=== PATIENT | female | born 1970 | race Caucasian/White ===

== ENCOUNTER → 2017-06-03 | Outpatient (CLI) | payer BC, SELFPAY | PROVIDERS: PCP Family Medicine; Visit Provider Family Medicine | DX: Z12.31 Encounter for screening mammogram for malignant neoplasm of breast (principal) | CPT/HCPCS: 77067; G0202 ==

== ENCOUNTER → 2017-11-24 14:51 | Outpatient (CLI) | payer BC, SELFPAY ==
--- NOTE | 2017-11-24 14:58 | US_ITS ---
US thyroid HISTORY: Follow-up thyroid nodules ITS.REASON: CYSTIC THYROID NODULE ORDERING PHYSICIAN: Renato Sanchez MD PATIENT AGE: 47 years Comparison: 12/25/2016 FINDINGS: Right lobe: 3.7 x 1.5 x 2.3 cm. 13 x 8 mm solid nodule in the mid aspect of the right lobe previously 16 x 10 mm 6 mm x 8 mm solid-appearing nodule in the lower pole not well demonstrated on the previous exam 10 x 8 mm solid-appearing nodule lower pole not well demonstrated on the previous exam Left lobe: 3.3 x 1.6 x 2 cm Complex cystic nodule in the mid polar region on the left at 18 mm unchanged Isthmus: Isthmus Bilateral thyroid nodules. The dominant nodules are unchanged. There are 2 nodules on the right which were not demonstrated previously but may be due to technique scanned by different technologists. Continued follow-up recommended
== END ==
PROVIDERS: PCP Family Medicine; Visit Provider Family Medicine
DX: E04.1 Nontoxic single thyroid nodule (principal)
CPT/HCPCS: 76536

== ENCOUNTER → 2018-08-24 15:27 | Outpatient (CLI) | payer BC, SELFPAY ==
--- NOTE | 2018-08-24 15:32 | XR_ITS ---
XR DEXA axial skeleton HISTORY: ITS.REASON: POSTMENOPAUSAL ORDERING PHYSICIAN: Kelli Doshi MD PATIENT AGE: 48 years COMPARISON: None FINDINGS: The BMD measured at the Right femoral neck is 1.065 g/cm squared with a T score of 0.2. This is considered Normal according to the World Health Organization criteria. Fracture risk is Low. The L1 L4 density has a normal T score of 0.7. IMPRESSION: Normal bone density with low fracture risk. Suggest follow-up exam August 2020
--- NOTE | 2018-08-24 15:33 | MM_ITS ---
MM Dig screening mamm BI w/CAD CAD Screening COMPARISON: Digital mammograms with CAD 09/22/2013 and 06/03/2017 INDICATION: There is a history of breast cancer patient's mother diagnosed at age 60 and the patient's paternal aunt. TECHNIQUE: Standard CC and MLO images were obtained. R2 CAD reviewed. FINDINGS: There is a markedly dense and heterogenic parenchymal pattern definitely lessening the sensitivity of mammography. There are multiple scattered microcalcifications in each breast most typical of sclerosing adenosis. There is a stable benign-appearing nodular density near the axillary tail right breast There is no suspicious lesion and there are no suspicious microcalcifications. IMPRESSION: Diffusely dense parenchymal pattern with no suspicious lesion seen BI-RADS Category: 2 Benign Finding(s) RECOMMENDED FOLLOW-UP: 1YR - 1 YEAR FOLLOW-UP (A letter has been sent to the patient regarding results of the study.)
== END ==
PROVIDERS: PCP Family Medicine; Visit Provider Family Medicine
DX: Z12.31 Encounter for screening mammogram for malignant neoplasm of breast (principal); Z78.0 Asymptomatic menopausal state
CPT/HCPCS: 77067; 77080

== ENCOUNTER → 2018-12-14 09:19 | Outpatient (CLI) | payer BC, SELFPAY ==
[2018-12-14 10:28] LABS: Basophils % 0.9 % (0.1-2.0); Eosinophils # 0.2 K/mm3 (0.0-0.4); Eosinophils % 3.9 % (0.1-12.0); Hematocrit 46.4 % (37.0-47.0); Hemoglobin 14.9 g/dL (12.2-16.2); Mean Corpuscular HGB Conc 32.1 g/dL (31.8-35.4); Mean Corpuscular Hemoglobin 30.4 pg (27.0-31.2); Mean Corpuscular Volume 94.6 fl (81-99); Mean Platelet Volume 8.3 fl (7.4-10.4); Monocytes # 0.3 K/mm3 (0.1-1.0); Monocytes % 6.1 % (1.7-9.3); Neutrophils # 2.4 K/mm3 (1.8-7.8); Neutrophils % 49.1 % (37.0-80.0); Platelet Count 266 K/mm3 (142-424); Red Blood Count 4.91 M/mm3 (4.20-5.40); Red Cell Distribution Width 12.5 % (11.5-17.5); White Blood Count 4.9 K/mm3 (4.8-10.8)
[2018-12-14 10:38] LABS: Alanine Aminotransferase 24 U/L (12-78); Albumin Level 3.8 gm/dL (3.4-5.0); Albumin/Globulin Ratio 1.4 (1.1-1.8); Alkaline Phosphatase 78 U/L (46-116); Anion Gap 13.4 mEq/L (5-15); Aspartate Amino Transferase 16 U/L (15-37); Bilirubin,Total 0.4 mg/dL (0.2-1.0); Blood Urea Nitrogen 17 mg/dL (7-18); Calcium 8.9 mg/dL (8.5-10.1); Carbon Dioxide 28 mmol/L (21.0-32.0); Chloride 108 mmol/L (98-107); Creatinine,Serum 0.82 mg/dL (0.55-1.02); Estimated Glomerular Filt Rate 74 ml/min (>60); GFR (African American) 89 ML/MIN (>60); Globulin 2.8 gm/dl (1.3-3.2); Glucose 92 mg/dL (74-106); Potassium 4.4 mmoL/L (3.5-5.1); Sodium 145 mmol/L (136-145); T4 (Thyroxine) 8.2 ug/dl (4.7-13.3); Total Protein,Serum 6.6 gm/dL (6.4-8.2)
== END ==
PROVIDERS: Visit Provider Family Medicine
DX: E04.1 Nontoxic single thyroid nodule (principal); R53.83 Other fatigue
CPT/HCPCS: 36415; 80053; 84436; 84443; 85025

== ENCOUNTER → 2018-12-22 09:11 | Outpatient (CLI) | payer BC, SELFPAY ==
--- NOTE | 2018-12-22 09:18 | US_ITS ---
US thyroid HISTORY: Follow-up nodule ITS.REASON: CYSTIC THYROID NODULE ORDERING PHYSICIAN: Renato Sanchez MD PATIENT AGE: 48 years Comparison: 11/24/2017 FINDINGS: The right lobe is 3.9 x 1.2 x 1.6 cm. In the mid polar region on the right there is an 18 x 10 mm solid appearing nodule previously 13 x 8 mm. In the lower pole there is an 8 x 5 mm nodule unchanged. An additional 10 mm nodule present in the lower pole unchanged. The left lobe is 4 x 1.6 x 2 cm. There is a 2.3 x 1.8 cm partially cystic nodule in the mid polar region unchanged. IMPRESSION: 1. No change in the partially cystic nodule in the left lobe of thyroid gland. 2. Solid-appearing nodule in the mid polar region on the right is slightly larger and 18 x 10 mm, previously 13 x 8 mm
== END ==
PROVIDERS: PCP Family Medicine; Visit Provider Family Medicine
DX: E04.1 Nontoxic single thyroid nodule (principal)
CPT/HCPCS: 76536

== ENCOUNTER 2019-01-14 08:00 | Outpatient (RCR) | payer BC, SELFPAY ==
--- NOTE | 2018-12-21 10:11 | HMH.PTOPEV ---
PT Outpatient Evaluation Rehab PT Outpatient Evaluation Start: 12/21/18 09:49 Freq: Status: Active Protocol: Document 12/21/18 09:50 SUSHMAANDREA (Rec: 12/21/18 10:10 SUSHMALACEYTORIE [id number]) Electronically Signed By Faheem Garcia, PT 12/21/18 09:50 Outpatient Therapy Subjective History Subjective History Patient is a 48 year old female presenting to outpatient PT with reports of chronic cervical spine pain with RUE radicular symptoms starting approximately 7 years ago with acute exacerbation starting 1 week ago. Symptom insidious in nature. No recent diagnostics to report. 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 Previous Rx for current symptoms includes PT and chiropractor. Positive responses to cervical manipulation and mechanical traction per pt report. Comorbidities include hx of hypothyroidism, thyroid nodules. Chief Complaint Pain,Stiff Symptom Type Ache,Sharp,Shooting Symptoms Relieved By Rest/Positioning,Heat,Ice,OTC Meds Prior Functional Limitations Reaching,Lifting,Housework, Driving,Sleeping,Recreation Activity Current Functional Limitations Reaching,Lifting,Housework, Driving,Sleeping,Recreation Activity Symptom Description Constant but Variable Level of pain today (0-10) 5 Pain scale - at its best (0-10) 9 Pain scale - at its worst (0-10) 3 Cervical Eval Palpation Cervical Muscles R Cervical Paraspinal,R Suboccipital,R CT Junction,R Thoracic Paraspinals Posture Head/C-Spine Posture Sitting Position C-Spine Flattened Head/C-Spine Posture Standing Position C-Spine Flattened Flexibility Deficits Upper Trapezius Muscle Length (R) Moderate Tightness Levaetor Scapulae Muscle Length (R) Moderate Tightness Pectoralis Minor Muscle Length (R) Moderate Tightness Passive Joint Mobility Cervical PIVM Dec: R C2/3 R C3/4 R C4/5 R C5/6 R C6/7
== END 2019-01-14 08:05 | disposition home or self-care (01) ==
LOC: PT 08:00
PROVIDERS: Visit Provider Family Medicine
DX: M47.22 Other spondylosis with radiculopathy, cervical region (principal)
CPT/HCPCS: 97010; 97012; 97014; 97035; 97110; 97140; 97163; G0283

== ENCOUNTER → 2019-02-16 16:56 | Outpatient (CLI) | payer BC, SELFPAY ==
--- NOTE | 2019-02-16 17:00 | XR_ITS ---
PROCEDURE: XR KNEE RT 3V CLINICAL INDICATION: ACUTE PAIN OF RT. KNEE COMPARISON: No exams were available for comparison FINDINGS: No fracture or dislocation. No lytic or blastic change. There is normal mineralization. Mild osteoarthritic change of the medial compartment and patellofemoral joint. Small loose bodies are present in the popliteal fossa region. At least 3 loose body suspected largest at 4 mm. Other findings:None. IMPRESSION: Osteoarthritis with loose intra-articular bodies in the popliteal fossa Dictated by: Alton Menchaca MD 02/16/2019 17:12 <Electronically signed by Alton Menchaca MD in [place]> 02/16/2019 17:12
== END ==
PROVIDERS: PCP Family Medicine; Visit Provider Physician Assistant
DX: M25.561 Pain in right knee (principal)
CPT/HCPCS: 73562

== ENCOUNTER → 2019-02-25 12:40 | Outpatient (CLI) | payer BC, SELFPAY ==
--- NOTE | 2019-02-25 12:44 | XR_ITS ---
PROCEDURE: XR KNEE RT 4V CLINICAL INDICATION: Foreign Body in Rt knee Knee pain swelling and hurting COMPARISON: XR KNEE RT 3V from 02/16/2019 FINDINGS: No fracture or dislocation. No lytic or blastic change. There is normal mineralization. There are mild osteoarthritic changes of the patellofemoral joint with osteophyte formation. Several small calcific densities are present along the posterior aspect of the knee joint consistent with loose bodies and may be due to synovial osteochondromas. These are not significantly changed. Other findings:None. IMPRESSION: No change mild osteoarthritis with loose bodies in the popliteal fossa Dictated by: Alton Menchaca MD 02/25/2019 15:15 Electronically signed by Alton Menchaca MD in [place] 02/25/2019 15:15
== END ==
PROVIDERS: PCP Family Medicine; Visit Provider Orthopaedic Surgery
DX: M25.561 Pain in right knee (principal)
CPT/HCPCS: 73564

== ENCOUNTER → 2019-03-10 08:04 | Outpatient (CLI) | payer BC, SELFPAY ==
--- NOTE | 2019-03-10 08:10 | MR_ITS ---
PROCEDURE: MR KNEE RT WO CON CLINICAL INDICATION: knee pain Right knee pain and swelling COMPARISON: XR KNEE RT 3V from 02/16/2019 XR KNEE RT 4V from 02/25/2019 TECHNIQUE: Routine multiplanar multi echo sequences are performed without gadolinium enhancement. FINDINGS: The posterior cruciate ligament has an unremarkable appearance. There is sparse of the of the fibers of the anterior cruciate ligament with some increased T2 signal suggesting a sprain or partial tear. There are few ligament fibers which are intact. The collateral ligaments, patellar tendon, and quadriceps tendon appear intact. There is no evidence of meniscal tear. There is marked thinning of the patellar cartilage with osteoarthritic change of the patellofemoral joint and bony hypertrophy. There is a irregular area of isointense T2 signal in the posterior aspect of the joint measuring 5 mm and may represent a loose bodies as noted on the plain film. There does appear to be a 5 and a 3 mm loose body at this area. There is a small knee joint effusion There is abnormal signal intensity involving the medial aspect of the lateral femoral condyle. There is a multilocular cystic area at this region which measures 1.7 by 1.3 by 1.7 cm. This is composed of multiple small fairly well-circumscribed cyst and does demonstrate some surrounding edema. This is at the medial aspect of the lateral femoral condyle and also extends into the intercondylar region. IMPRESSION: 1. No evidence of internal derangement 2. Osteoarthritic change of the patellofemoral joint with loss of patellar cartilage consistent with chondromalacia patella. Loose bodies are noted in the posterior aspect of the joint space 3. Multilocular cystic area involves the medial aspect of the lateral femoral condyle as described above extending into the intercondylar region with a moderate amount of surrounding edema. This may merely represent prominent subarticular cystic changes/geode as seen with osteoarthritis. A multilocular cystic neoplasm would be included in the differential diagnosis such as an aneurysmal bone cyst or giant cell tumor or chondrosarcoma.. This lesion is at the region of the insertion of the superior aspect of the posterior cruciate ligament. Saul's abscess is felt to be a less likely consideration is well. There is some edema around the lesion but no obvious soft tissue component. CT without and with contrast may add further evaluation if clinically warranted. Dictated by: Alton Menchaca MD 03/12/2019 12:19 Electronically signed by Alton Menchaca MD in [place] 03/12/2019 12:20
== END ==
PROVIDERS: PCP Family Medicine; Visit Provider Orthopaedic Surgery
DX: M25.561 Pain in right knee (principal); G89.29 Other chronic pain
CPT/HCPCS: 73721

== ENCOUNTER 2019-04-01 11:00 | Outpatient (RCR) | payer BC, SELFPAY ==
--- NOTE | 2019-03-23 10:18 | HMH.PTOPEV ---
PT Outpatient Evaluation Rehab PT Outpatient Evaluation Start: 03/23/19 09:16 Freq: Status: Active Protocol: Document 03/23/19 10:06 SUSHMAANDREA (Rec: 03/23/19 10:18 ROME [id number]) Electronically Signed By Faheem Garcia, PT 03/23/19 10:06 Outpatient Therapy Subjective History Subjective History Patient is a 48 year old female presenting to outpatient PT with reports of R knee pain starting approximately 3 months ago as a result of a fall at work. Pt reports that her knee hyperextended. Most recent diagnostics indicate R partial ACL tear, chondromalacia patellae and possible cyst/ neoplasm. Pt reports completing 1 round of oral steriods that provided some relief. Comorbidities include hx of HTN and neck/shoulder pain. Chief Complaint Pain Symptom Type Ache,Dull Symptoms Relieved By Rest/Positioning,Heat,Ice,OTC Meds Symptoms Aggravated By Standing,Physical Activity, Walking Prior Functional Limitations None Current Functional Limitations Housework,Standing,Squatting, Recreation Activity,Walking, Stairs Symptom Description Constant but Variable Level of pain today (0-10) 3 Pain scale - at its best (0-10) 3 Pain scale - at its worst (0-10) 10 Hip/Knee Eval Gait Observation General Gait Pattern Observation Decrease Weight Bear (R) Assistive Device Assistive Devices None / NA Palpation Tenderness right Knee Palpation Finding Tenderness Knee Palpation Overall Comment M/L joint line, popliteal fossa MMT left Hip Strength Reason Not Measured WFL Knee Strength Reason Not Measured WFL right Hip Flexion Strength Grade 4 Good Hip Abduction Strength Grade 4 Good Hip Adduction Strength Grade 4 Good Hip Extension Strength Grade 4- Good- Hip External Rotation Strength Grade 3+ Fair+ Hip Internal Rotation Strength Grade 3+ Fair+ Knee Extension Strength Grade 4 Good Knee Flexion Strength Grade 4 Good ROM Hip ROM Reason Not Measured Within Functional Limits Knee Extension Active Range of Motion ( -5 degrees) Knee Flexion Active Range of Motion ( 128 degrees)
== END 2019-04-01 11:05 | disposition home or self-care (01) ==
LOC: PT 11:00
PROVIDERS: PCP Family Medicine; Visit Provider Orthopaedic Surgery
DX: M22.41 Chondromalacia patellae, right knee (principal); M25.561 Pain in right knee; M17.11 Unilateral primary osteoarthritis, right knee; M24.00 Loose body in unspecified joint; G89.29 Other chronic pain
CPT/HCPCS: 97010; 97014; 97163; G0283

== ENCOUNTER → 2020-02-02 09:20 | Outpatient (CLI) | payer BC, SELFPAY ==
[2020-02-02 10:37] LABS: Chloride 105 mmol/L (98-107); Potassium 4.7 mmoL/L (3.5-5.1); Sodium 142 mmol/L (136-145)
[2020-02-02 10:39] LABS: Blood Urea Nitrogen 22 mg/dl (7-17); Estimated Glomerular Filt Rate 76 ml/min (>60); GFR (African American) 92 ML/MIN (>60)
[2020-02-02 10:40] LABS: Alanine Aminotransferase 15 U/L (12-78); Albumin Level 4.2 g/dl (3.5-5.0); Albumin/Globulin Ratio 1.7 (1.1-1.8); Alkaline Phosphatase 74 U/L (38-126); Anion Gap 12.7 mEq/L (5-15); Aspartate Amino Transferase 19 U/L (14-36); Bilirubin,Total 0.5 mg/dl (0.2-1.3); Calcium 9.8 mg/dl (8.4-10.2); Carbon Dioxide 29 mmol/L (22.0-30.0); Cholesterol 214 mg/dl (140-200); Globulin 2.5 g/dL (1.3-3.2); Glucose 97 mg/dl (74-100); Total Protein,Serum 6.7 g/dl (6.3-8.2); Triglycerides 87 mg/dl (30-150); VLDL Cholesterol 17 mg/dL (0-40)
[2020-02-02 10:41] LABS: Chol/HDL Ratio 3.1 (1-3.5); HDL Cholesterol 68 mg/dl (40-60)
[2020-02-02 10:51] LABS: Direct LDL Cholesterol 123.04 mg/dL (100-129)
[2020-02-02 10:57] LABS: T4 (Thyroxine) 8.1 ug/dl (5.53-11.0)
[2020-02-02 11:10] LABS: Thyroid Stimulating Hormone 1.64 uIU/mL (0.465-4.68)
== END ==
PROVIDERS: Visit Provider Family Medicine
DX: Z00.00 Encounter for general adult medical examination without abnormal findings (principal); E04.1 Nontoxic single thyroid nodule
CPT/HCPCS: 36415; 80053; 80061; 84436; 84443

== ENCOUNTER → 2020-02-14 15:31 | Outpatient (CLI) | payer BC, SELFPAY ==
--- NOTE | 2020-02-14 15:43 | US_ITS ---
PROCEDURE: US THYROID CLINICAL INDICATION: THYROID GOITER Follow-up thyroid nodules COMPARISON: US BX US BIOPSY OR PARACENTESIS from 02/04/2017 US THY US thyroid from 12/22/2018 FINDINGS: The right lobe is 3.4 x 1.7 x 1.3 cm. There are multiple nodules present on the right. Nodule a is solid-appearing nodule at 15 mm unchanged. Nodule B is solid-appearing isoechoic nodule at 8 mm unchanged nodule C is 11 mm isoechoic in nature with some peripheral calcification suspected unchanged. The left lobe is 4.3 x 1.6 x 1.9 cm. A complex cystic and solid nodules present in the mid polar region at 22 x 16 mm unchanged. This nodule was previously biopsied.. A 3 mm hypoechoic nodules present in the lower pole unchanged. The isthmus has an unremarkable appearance. IMPRESSION: Multinodular goiter unchanged Dictated by: Alton Menchaca MD 02/15/2020 11:03 Alton Menchaca MD in [place] 02/15/2020 11:03
== END ==
PROVIDERS: PCP Family Medicine; Visit Provider Otolaryngology
DX: E04.9 Nontoxic goiter, unspecified (principal)
CPT/HCPCS: 76536

== ENCOUNTER → 2020-02-21 16:43 | Outpatient (CLI) | payer BC, SELFPAY ==
--- NOTE | 2020-02-21 16:45 | MM_ITS ---
PROCEDURE: MM DIG SCREENING MAMM BI W/CAD Digital Breast Tomosynthesis Included CLINICAL INDICATION: SCREENING There is a history of breast cancer in the patient's mother diagnosed after menopause and the patient's paternal aunt. There has been a previous cyst aspiration left breast with benign findings. COMPARISON: MG D[facility]B DIG MAMM-SCREEN [place] from 09/22/2013 MG DMSB DIG MAMM-SCREEN [place] W/CAD from 06/03/2017 MG [facility]BI MM Dig screening mamm BI w/CAD from 08/24/2018 TECHNIQUE: Standard CC and MLO images and 3D Tomosynthesis was obtained. R2 CAD reviewed. FINDINGS: Prominent somewhat heterogenic fibroglandular densities are seen in the central portions of both breasts and the findings are fairly symmetrical and bilateral. There are scattered micro calcifications in each breast most of which have the appearance of sclerosing adenosis. Terry images are most helpful in this rather dense breast parenchyma. There is no definite suspicious lesion and no suspicious microcalcifications. IMPRESSION: Dense and heterogenic parenchymal pattern with no suspicious lesions seen BI-RAD Category: 2 Benign Finding(s) FOLLOW-UP: 1YR 1 Year Follow-up (A letter has been sent to the patient regarding results of the study.) Dictated by: Dr. Michael Hui MD 02/24/2020 20:13 Dr. Michael Hui MD in [place] 02/24/2020 20:13
== END ==
PROVIDERS: PCP Family Medicine; Visit Provider Physician Assistant
DX: Z12.31 Encounter for screening mammogram for malignant neoplasm of breast (principal)
CPT/HCPCS: 77063; 77067

== ENCOUNTER 2021-01-20 19:09 | Emergency (ER) | payer BC, SELFPAY ==
[2021-01-20 19:45] VITALS: BP 141/88; PULSE 86; RESP 19; TEMP 37.7; O2SAT 98; BMI 32.5
[2021-01-20 20:28] VITALS: BP 141/88; PULSE 86; RESP 19; TEMP 37.7; O2SAT 98
--- NOTE | 2021-01-20 20:36 | HMH.EDUTC ---
[facility] Disposition Clinical Impression: Exposure to COVID-19 virus, Upper respiratory infection, viral Disposition: Home, Self-Care Condition on Discharge: Good Instructions: DI for COVID-19 (Suspected or Confirmed ), Preventing the Spread of Coronavirus Discharge Instructions Additional Instructions: No sign of a bacterial infection. Likely viral. Viruses can take 7-14 days to run their course. Nasal saline and bulb syringe or nose Emy to remove nasal drainage to help with nasal congestion. Hard to eat, drink, sleep with nasal congestion so important to keep this cleaned out. Monitor temp. Tylenol or Motrin as needed for pain or fever Encourage fluids, water, Gatorade, Powerade, Pedialyte if infant/toddler/child Warm salt water gargles Warm fluids Sore throat lozenges Sleep elevated Humidifier/vaporizer Follow-up immediately for new or worsening symptoms or no noticeable improvement over the next 48-72 hours. your covid swab was sent to lab call tomorrow for test result Prescriptions: Benzonatate [Tessalon Perle 100mg Cap*] 100 mg PO BID 7 Days #14 cap Transmission Status: Pending to [id number] Referrals: Renato Sanchez MD [Primary Care Provider] - Time of Disposition: 20:39 Medical Decision Making - [place] Inquiry Pt receiving controlled substance: No Vital Signs: 01/20/21 19:45 01/20/21 20:28 Temperature 99.8 F H 99.8 F H Temperature Source Oral Pulse Rate 86 Pulse Rate [Right Brachial] 86 Respiratory Rate 19 19 Blood Pressure 141/88 H Blood Pressure [Right Arm] 141/88 H Blood Pressure Mean [Right Arm] 105 Blood Pressure Source [Right Arm] Automatic Cuff Blood Pressure Position [Right Arm] Sitting 02 Sat by Pulse Oximetry 98 Oxygen Delivery Method Room Air Orders (Tests/Meds): ORDERS Category Date Time Status Covid-19 Nasal PCR ([facility]) Routine Lab 01/20/21 19:[address] [facility] HPI - General Chief complaint: Urgent [facility] Stated complaint: covid test, Symptoms Time Seen by Provider: 01/20/21 20:36 Mode of Arrival: Ambulatory Source of Information: Patient Limitations: No Limitations Description of Symptoms (Recalled from Triage Doc. by RN): PATIENT STATES SHE THINKS SHE HAS AN UPPER RESPIRATORY INFECTION AND WANTS TO BE TESTED FOR COVID HEENT Symptoms (Recalled from RN notes): No Resp Symptoms (Recalled from RN notes): Yes Skin Symptoms (Recalled from RN notes): No MS Symptoms (Recalled from RN notes): No Functional Status (Recalled from RN notes): WNL - History of Present Illness Provider Complaint: 50 yr old female presents for cough, nasal congestion,sore throat,weakness and sinus pressure. is taking antibiotics from pcp and was exposed to covid - Related Data Home Medications Medication Instructions Recorded Confirmed estradiol 1 mg tablet 1 mg PO DAILY 02/25/19 09/05/19 multivitamin 1 tab PO DAILY 02/25/19 09/05/19 Previous Rx's Medication Instructions Recorded albuterol sulfate 90 mcg/actuation 2 puff INHALATION Q6H PRN 7 Days 09/05/19 aerosol inhaler #6.7 g Benzonatate [Tessalon Perle 100mg 100 mg PO BID 7 Days #14 cap 01/20/21 Cap*] Allergies Allergy/AdvReac Type Severity Reaction Status Date / Time No Known Drug Allergies Allergy Unknown Verified 09/05/19 15:33 - Worker's Comp Is this a Worker's Comp case?: No [facility] History - Hepatitis A Screen Drug use history?: No High risk sexual behaviors?: No History of sexually transmitted infection?: No Currently employed?: No Childcare worker?: No Do you have indoor plumbing?: Yes Do you have electricity?: Yes Attestation statement:: This patient has been screened for Hepatitis A risk factors. I have reviewed the patient's past medical history: Yes Other Surgeries: Yes: , Hysterectomy-Total - Social History Smoking Status: Never smoker Alcohol Intake: former Alcohol Intake Frequency:: holidays/special occasions only Occupational Status:
--- NOTE | 2021-01-21 17:16 | PC.NURSE ---
pt called for results of covid test, she waws advised it was positive
== END 2021-01-20 20:44 | disposition home or self-care (01) ==
PROVIDERS: Emergency Provider Nurse Practitioner Family; PCP Family Medicine
DX: U07.1 COVID-19 (principal)
CPT/HCPCS: 99202; G0463; U0003

== ENCOUNTER → 2021-07-11 15:31 | Outpatient (CLI) | payer BC, SELFPAY ==
[2021-07-11 17:36] LABS: Basophils # 0.1 K/mm3 (0-0.2); Basophils % 0.8 % (0.1-2.0); Eosinophils # 0.2 K/mm3 (0.0-0.4); Eosinophils % 1.6 % (0.1-12.0); Hematocrit 47.5 % (37.0-47.0); Hemoglobin 15.5 g/dL (12.2-16.2); Lymphocytes # 2.9 K/mm3 (0.7-4.5); Lymphocytes % 27.1 % (10-50); Mean Corpuscular HGB Conc 32.7 g/dL (31.8-35.4); Mean Corpuscular Hemoglobin 30.8 pg (27.0-31.2); Mean Corpuscular Volume 94.1 fl (81-99); Monocytes # 0.7 K/mm3 (0.1-1.0); Monocytes % 6.1 % (1.7-9.3); Neutrophils % 64.4 % (37.0-80.0); Platelet Count 323 K/mm3 (142-424); Red Blood Count 5.05 M/mm3 (4.20-5.40); Red Cell Distribution Width 12.7 % (11.5-17.5); White Blood Count 10.8 K/mm3 (4.8-10.8)
== END ==
PROVIDERS: PCP Family Medicine; Visit Provider Physician Assistant
DX: Z20.822 Contact with and (suspected) exposure to COVID-19 (principal)
CPT/HCPCS: 36415; 85025; C9803; U0003; U0005

== ENCOUNTER → 2021-08-16 13:23 | Outpatient (CLI) | payer BC, SELFPAY ==
--- NOTE | 2021-08-16 13:34 | US_ITS ---
FINAL REPORT CLINICAL HISTORY: THYROID NODULE COMPARISON: February 14, 2020 FINDINGS: THYROID ULTRASOUND Sonographic images of the thyroid was obtained. The right lobe of the thyroid measures 3.7 x 1.5 x 1.2 cm. The left lobe of the thyroid measures 3.7 x 2.0 x 1.7 cm. The isthmus measures 2 mm. Right lobe nodules: Nodule A is solid, isoechoic and visually stable. It previously measured up to 15 mm and today it measures 16 x 10 x 8 mm. TI-RADS 3 Nodule B is solid, isoechoic and stable. It measures 9 x 7 x 7 mm, TI-RADS 3. Nodule C previously measured up to 10 mm and today measures 8 x 8 x 6 mm with a small calcification within it, TI-RADS 4. There is a left lobe nodule measuring 23 x 17 x 16 mm and previously measured up to 22 mm. It is heterogeneous, hypoechoic with peripheral calcifications. TI-RADS 4, stable IMPRESSION: Stable thyroid evaluation. Recommend additional follow up in 12 months. Reviewed, Interpreted and Dictated by Lior Finn III, MD Transcribed by Ena Quiroz Authenticated by Lior Finn III, MD on 08/16/2021 03:51:54 PM [facility]
== END ==
PROVIDERS: PCP Family Medicine; Visit Provider Family Medicine
DX: E04.1 Nontoxic single thyroid nodule (principal)
CPT/HCPCS: 76536

== ENCOUNTER 2022-03-21 17:00 | Outpatient (RCR) | payer BC, SELFPAY | END 2022-03-21 17:05 | disposition home or self-care (01) | LOC: PT 17:00 | PROVIDERS: PCP Family Medicine; Visit Provider Student in an Organized Health Care Education/Training Program | DX: M25.561 Pain in right knee (principal); M17.11 Unilateral primary osteoarthritis, right knee | CPT/HCPCS: 97163 ==

== ENCOUNTER 2022-03-22 19:30 | Emergency (ER) | payer BC, SELFPAY ==
[2022-03-22 19:46] VITALS: BP 150/81; PULSE 77; RESP 18; TEMP 37.1; O2SAT 97; BMI 29.2
--- NOTE | 2022-03-22 19:47 | EXP.UTC ---
Discharge Plan Disposition Patient Disposition: Home, Self-Care Condition: Good Prescriptions Prescriptions: New benzonatate [benzonatate] 100 mg capsule 100 mg PO TIDP PRN (Reason: Cough) Qty: 30 0RF ondansetron 4 mg Tablet,Disintegrating 4 mg PO Q8H PRN (Reason: Nausea) Qty: 20 0RF No Action estradiol [Estrace] 1 mg tablet 1 mg PO DAILY multivitamin Tablet 1 tab PO DAILY albuterol sulfate 90 mcg/actuation HFA aerosol inhaler 2 puff INHALATION Q6H PRN (Reason: SOB) 7 Days Qty: 6.7 0RF Rx Instructions: administer with spacer benzonatate 100 MG capsule 100 mg PO BID 7 Days Qty: 14 0RF Referrals Follow up/Referrals: Renato Sanchez MD [Primary Care Provider] - See instructions Activity Restrictions/Add. Instructions Additional Instructions/Restrictions: Drink plenty of fluids. Take tylenol or ibuprofen for pain or fever. Take the medications as directed. Follow up with your regular doctor. GO TO THE ER FOR ANY WORSENING SYMPTOMS Quarantine until you know the results of your covid-19 test. Notify your school or workplace of your results and follow their instructions regarding return to work/school. Clinical Impressions Clinical Impression: COVID-19 Instructions Patient Instructions: Coronavirus Disease 2019 Discharge ED Provider: Dc Hill [facility] General Stated complaint: covid test Time Seen by Provider: 03/22/22 19:47 History of Present Illness Provider Complaint: She states that she began to feel bad 2 days ago, but thought she was just having allergy symptoms. She continued to feel worse until she took a home covid-19 test today that was positive. She notified her work () and she was told to come here to have a pcr test. She denies any shortness of breath or chest congestion. Related Data Home Medications Medication Instructions Recorded Confirmed estradiol 1 mg tablet (Estrace) 1 mg PO DAILY 02/25/19 09/05/19 multivitamin 1 tab PO DAILY 02/25/19 09/05/19 Previous Rx's Medication Instructions Recorded albuterol sulfate 90 mcg/actuation 2 puff inhalation Q6H PRN SOB 7 09/05/19 aerosol inhaler days #6.7 grams benzonatate 100 mg capsule 100 mg PO BID 7 days #14 caps 01/20/21 benzonatate 100 mg capsule 100 mg PO TIDP PRN Cough #30 caps 03/22/22 ondansetron 4 mg disintegrating 4 mg PO Q8H PRN Nausea #20 tabs 03/22/22 tablet Allergies Allergy/AdvReac Type Severity Reaction Status Date / Time No Known Drug Allergies Allergy Unknown Verified 03/22/22 19:49 PFSH PFSH Social History Smoking Status: Never smoker alcohol intake: former current occupational status: employed Travel in the last 8 weeks: None household members: family housing: house ROS Obtained: Yes All systems reviewed & no additional complaints except as documented Constitutional Constitutional: Denies chills and Denies fever(s) Eyes Eyes: Denies eye discharge ENT Ears, Nose, Mouth, and Throat: Denies dizziness, Denies otalgia and Denies sore throat Cardiovascular Cardiovascular: Denies chest pain Respiratory Respiratory: Denies shortness of breath, Denies chest congestion, Denies cough, Denies stridor and Denies wheezing Gastrointestinal Gastrointestingal: Denies nausea or vomiting Musculoskeletal Musculoskeletal: Reports system reviewed and no additional complaints, except as documented and Denies arthralgias Integumentary/Breasts Skin/Breast: Denies rash Neurologic Neurologic: Denies dizziness and Denies paresthesias Allergic/Immunologic Allergic/Immunologic: Denies wheezing Physical Exam General General appearance: alert and in no apparent distress Head Head exam: atraumatic, normocephalic and normal inspection Eye Eye exam: Present normal appearance, PERRL and EOMI ENT ENT exam: Present normal exam, normal oropharynx, mucous membranes moist, TM's normal bilaterally and
[2022-03-22 20:23] VITALS: BP 150/81; PULSE 77; RESP 18; TEMP 37.1
== END 2022-03-22 20:25 | disposition home or self-care (01) ==
PROVIDERS: Emergency Provider Nurse Practitioner Family; PCP Family Medicine
DX: U07.1 COVID-19 (principal); R06.02 Shortness of breath; Z79.51 Long term (current) use of inhaled steroids; Z79.890 Hormone replacement therapy; Z79.899 Other long term (current) drug therapy
CPT/HCPCS: 99213; C9803; G0463; U0003; U0005

== ENCOUNTER 2023-01-07 16:52 | Observation (INO) | payer BC, SELFPAY ==
[2023-01-07] VITALS (17 sets, daily range): BP systolic 103–145; BP diastolic 62–89; PULSE 61–97; RESP 16–20; TEMP 36.2–37; O2SAT 95–100; BMI 29.8; BMI 29.7
[2023-01-07 14:34] LABS: Basophils % 0.7 % (0.1-2.0); Eosinophils # 0.1 K/mm3 (0.0-0.4); Eosinophils % 2.2 % (0.1-12.0); Hematocrit 49.5 % (37.0-47.0); Hemoglobin 15.8 g/dL (12.2-16.2); Lymphocytes # 1.4 K/mm3 (0.7-4.5); Lymphocytes % 26.2 % (10-50); Mean Corpuscular HGB Conc 31.9 g/dL (31.8-35.4); Mean Corpuscular Hemoglobin 29.5 pg (27.0-31.2); Mean Corpuscular Volume 92.4 fl (81-99); Mean Platelet Volume 7.8 fl (7.4-10.4); Monocytes # 0.3 K/mm3 (0.1-1.0); Monocytes % 6.1 % (1.7-9.3); Neutrophils # 3.5 K/mm3 (1.8-7.8); Neutrophils % 64.8 % (37.0-80.0); Platelet Count 254 K/mm3 (142-424); Red Blood Count 5.36 M/mm3 (4.20-5.40); Red Cell Distribution Width 12.6 % (11.5-17.5); White Blood Count 5.4 K/mm3 (4.8-10.8)
--- NOTE | 2023-01-07 14:40 | IR_ITS ---
APPROVED REPORT Patient Location: [facility] Picture: MELLISA Lyn RT (R) PROCEDURES Left heart catheterization Left ventriculogram Selective coronary angiogram Drug-eluting stent deployment to the proximal and mid LAD Drug-eluting stent deployment to the ostial proximal dominant right coronary INDICATION Unstable angina, Coronary artery disease, Clinical history, 52-year-old patient with classic unstable angina referred to the office today for urgent consultation. Patient was experiencing recurrent classic angina pectoris which was intensifying and occurring with less physical activity and even occurring at rest. Patient was sent in directly for urgent consultation. While seen in the office patient was having some discomfort and experiencing ischemic EKG abnormalities with ST depression in both the inferior and anterior leads. Because of this she was taken directly to the Process Analyst for cardiac catheterization, Informed consent was obtained prior to the procedure. COMPLICATIONS None Estimated Blood Loss: Less than 10 ml TECHNIQUE One percent lidocaine used to anesthetize the right anterior aspect of the wrist. The right radial artery was accessed via the Seldinger technique. A 6 Guamanian sheath was placed in the right radial artery. 150 mg magnesium sulfate, 800 mcg of nitroglycerin, 1mg Lidocaine and 5000 U Heparin were given through the arterial sheath. The papa catheter was also used to perform left heart catheterization, left ventriculogram and selective coronary angiogram. At the end the diagnostic angiogram therapeutic Was administered and the therapeutic ACT and the guide catheter was placed in left main artery followed by Choice PT extra-support wire being placed down the LAD. A guide liner was advanced for additional support. A 3 mm x 18 mm Neel frontier stent was placed in the proximal to mid LAD and deployed at 14 agustin. An additional 3 mm x 15 mm Neel frontier stent was placed proximal to the for stent yet still overlapping it and deployed at 16 agustin. There was angiographic jailing of the 2.25-2.5 mm first diagonal artery however HADLEY-3 flow was present. After achieving excellent angiograph results the apparatus was removed and placed into the right coronary artery followed by Choice PT extra-support wire. A 3.5 x 26 mm Neel frontier stent was placed in the ostial proximal segment and deployed at 18 agustin reducing the severe stenosis to 0%. HADLEY-2 flow was present at the beginning the procedure with HADLEY-3 flow at the end of procedure. In the procedure the apparatus was removed the sheath was removed and hemostasis was achieved using TR banding patient was transferred the postop putting in stable condition ANGIOGRAPHIC RESULTS The left main artery Normal The left anterior descending artery Has a proximal 40 to 50% stenosis which then tapers into a concentric 70 to 80% stenosis immediately adjacent to a 2.25 mm moderate-sized first diagonal artery. The remaining LAD has mild diffuse 10% luminal irregularities The circumflex artery Nondominant yet still large with mild proximal 10% luminal irregularities The right coronary artery Large dominant vessel with an ostial 50% stenosis and a proximal concentric hazy 70% stenosis followed by mid vessel 30% stenosis The DYE ventriculogram reveals Normal 65% The left ventricular end-diastolic pressure 20 mmHg IMPRESSION Severe two-vessel coronary disease as described above Successful stenting the proximal to mid LAD severe disease reduced to 0% with 2 contiguous drug-eluting stents Jailing of a 2.25 to 2.5 mm first diagonal artery which is accompanied by HADLEY-3 flow and should be best managed medically Successful stenting of the ostial proximal dominant right coronary severe disease reduced to 0% w
[2023-01-07 14:43] LABS: Anion Gap 11.7 mEq/L (5-15); Blood Urea Nitrogen 13 mg/dl (7-17); Calcium 9.4 mg/dl (8.4-10.2); Carbon Dioxide 27 mmol/L (22.0-30.0); Chloride 108 mmol/L (98-107); Creatinine Clearance Estimated 100 mL/min (50-200); Estimated Glomerular Filt Rate 75 ml/min (>60); GFR (African American) 90 ML/MIN (>60); Glucose 108 mg/dl (74-100); Potassium 3.7 mmoL/L (3.5-5.1); Sodium 143 mmol/L (136-145)
--- NOTE | 2023-01-07 16:36 | EXP.HP ---
History of Present Illness *Admission Date: 01/07/23 *Reason for visit:: Chest pain, unstable angina, post PCI *History of present illness: Ms. Menchaca is a pleasant 52-year-old female on no home medications, with no history of CAD or hypertension. She states that over the past month she has had several episodes of chest pain with exertion that have become more intense. She also states that she has had several episodes of more severe hot flashes than normal accompanied by diaphoresis and heartburn and nausea. Most recent episode was 2 to 3 days ago. She woke up with pain, got better with aspirin. Recurred after minor exertion and then resolved again with rest. This led to her calling her PCP who recommended she come to cardiology clinic today for evaluation. On evaluation in the cardiology clinic, strong concern for unstable angina and patient was taken to the Insulation Installer for immediate evaluation. EKG in clinic noted to have findings consistent with ischemic changes in inferior and anterior leads. In the Insulation Installer, patient was found to have proximal LAD and proximal dominant right coronary artery lesions. She received 3 stents total. Cardiology request admission overnight for observation and further monitoring of blood pressure. Patient having mild angina post procedure. Stable on room air. On arrival to the floor, patient is pleasant and hemodynamically stable. Family at bedside. Questions answered. [facility] Disclaimer: The information contained in this section may have been updated after the patient was seen, as this information can be updated by other users. Medical History Abnormal electrocardiogram [ECG] [EKG] History of left heart catheterization HLD (hyperlipidemia) Osteoarthritis Unstable angina Surgical History H/O section H/O: hysterectomy Stented coronary artery Family History No significant family history Social History Smoking Status: Never smoker alcohol intake: former current occupational status: employed Travel in the last 8 weeks: None household members: family housing: house Review of Systems Review of Systems Review of systems (narrative): 14 point review of systems performed, pertinent positives and negatives as per HPI Meds Home Medications and Allergies Home Medications Medication Instructions Recorded Confirmed Type multivitamin 1 tab PO DAILY Supplement 02/25/19 01/07/23 History aspirin 81 mg chewable tablet 81 mg PO DAILY #30 tabs 01/07/23 Rx ticagrelor 90 mg tablet (Brilinta) 90 mg PO BID #60 tabs 01/07/23 Rx New Prescriptions to Start Prescriptions: Matt Damon ticagrelor [Brilinta] Matt Thomas Allergies Allergy/AdvReac Type Severity Reaction Status Date / Time fentanyl AdvReac Intermediate Nausea Verified 01/07/23 15:37 midazolam [From Versed] AdvReac Intermediate Confusion Verified 01/07/23 17:36 Exam Data for Last 24 hours Vital signs and Labs for Last 24 Hours: Temp Pulse Resp BP Pulse Ox O2 Del Method 98.6 F 96 H 20 128/86 100 Room Air 01/07/23 14:30 01/07/23 16:32 01/07/23 16:32 01/07/23 16:32 01/07/23 16:32 01/07/23 16:32 Laboratory Results - last 24 hr 01/07/23 14:15: WBC 5.4, RBC 5.36, Hgb 15.8, Hct 49.5 H, MCV 92.4, MCH 29.5, MCHC 31.9, RDW 12.6, Plt Count 254, MPV 7.8, Neut % (Auto) 64.8, Lymph % (Auto) 26.2, [place] % (Auto) 6.1, Eos % (Auto) 2.2, Baso % (Auto) 0.7, Neut # (Auto) 3.5, Lymph # (Auto) 1.4, [place] # (Auto) 0.3, Eos # (Auto) 0.1, Baso # (Auto) 0.0, Sodium 143, Potassium 3.7, Chloride 108 H, Carbon Dioxide 27, Anion Gap 11.7, BUN 13, Creatinine 0.80, Estimated Creat Clear 100, Estimated GFR 75, Est GFR ( Amer) 90, Glucose 108 H, Calcium 9
[2023-01-07 16:48] LABS: CATHL Activated Clotting Time 270 SEC (74-125)
--- NOTE | 2023-01-07 17:05 | PC.NURSE ---
arrived by norbertoer from [facility]
[2023-01-08] VITALS: PULSE 70
[2023-01-08 04:00] VITALS: BP 112/67; PULSE 70; RESP 16; TEMP 36.5; O2SAT 97; BMI 29.8
[2023-01-08 06:34] LABS: Basophils % 0.4 % (0.1-2.0); Eosinophils # 0.2 K/mm3 (0.0-0.4); Lymphocytes # 1.5 K/mm3 (0.7-4.5); Monocytes # 0.4 K/mm3 (0.1-1.0); Red Cell Distribution Width 12.7 % (11.5-17.5)
[2023-01-08 06:44] LABS: Alanine Aminotransferase 18 U/L (12-78); Albumin Level 3.8 g/dl (3.5-5.0); Albumin/Globulin Ratio 1.7 (1.1-1.8); Alkaline Phosphatase 74 U/L (38-126); Anion Gap 8.8 mEq/L (5-15); Aspartate Amino Transferase 26 U/L (14-36); Bilirubin,Total 0.2 mg/dl (0.2-1.3); Blood Urea Nitrogen 15 mg/dl (7-17); Calcium 8.7 mg/dl (8.4-10.2); Carbon Dioxide 27 mmol/L (22.0-30.0); Chloride 111 mmol/L (98-107); Chol/HDL Ratio 3.7 (1-3.5); Cholesterol 163 mg/dl (140-200); Creatinine Clearance Estimated 101 mL/min (50-200); Estimated Glomerular Filt Rate 75 ml/min (>60); GFR (African American) 90 ML/MIN (>60); Globulin 2.2 g/dL (1.3-3.2); Glucose 114 mg/dl (74-100); HDL Cholesterol 44 mg/dl (40-60); Magnesium 2.1 mg/dl (1.6-2.3); Potassium 3.8 mmoL/L (3.5-5.1); Sodium 143 mmol/L (136-145); Triglycerides 127 mg/dl (30-150); VLDL Cholesterol 25 mg/dL (0-40)
[2023-01-08 06:52] LABS: Eosinophils % 2.3 % (0.1-12.0); Hematocrit 44.7 % (37.0-47.0); Lymphocytes % 20.8 % (10-50); Mean Corpuscular HGB Conc 31.4 g/dL (31.8-35.4); Mean Corpuscular Volume 92.5 fl (81-99); Mean Platelet Volume 8.2 fl (7.4-10.4); Monocytes % 5.9 % (1.7-9.3); Neutrophils % 70.6 % (37.0-80.0); Platelet Count 238 K/mm3 (142-424); Red Blood Count 4.83 M/mm3 (4.20-5.40)
[2023-01-08 06:55] LABS: Direct LDL Cholesterol 94.27 mg/dL (100-129)
[2023-01-08 07:14] LABS: Thyroid Stimulating Hormone 1.38 uIU/mL (0.465-4.68)
[2023-01-08 08:00] VITALS: BP 132/74; PULSE 76; RESP 18; TEMP 36.9; O2SAT 97
--- NOTE | 2023-01-08 08:07 | EXP.DC.SUM ---
General Admission date:: 01/07/23 Discharge date: 01/08/23 HPI HPI HPI: Ms. Menchaca is a pleasant 52-year-old female on no home medications, with no history of CAD or hypertension. She states that over the past month she has had several episodes of chest pain with exertion that have become more intense. She also states that she has had several episodes of more severe hot flashes than normal accompanied by diaphoresis and heartburn and nausea. Most recent episode was 2 to 3 days ago. She woke up with pain, got better with aspirin. Recurred after minor exertion and then resolved again with rest. This led to her calling her PCP who recommended she come to cardiology clinic today for evaluation. On evaluation in the cardiology clinic, strong concern for unstable angina and patient was taken to the Clay Burner for immediate evaluation. EKG in clinic noted to have findings consistent with ischemic changes in inferior and anterior leads. In the Clay Burner, patient was found to have proximal LAD and proximal dominant right coronary artery lesions. She received 3 stents total. Cardiology request admission overnight for observation and further monitoring of blood pressure. Patient having mild angina post procedure. Stable on room air. On arrival to the floor, patient is pleasant and hemodynamically stable. Family at bedside. Questions answered. Hospital Course Hospital Course Hospital Course: 52-year-old female who presented to cardiology clinic with unstable angina. Taken to Clay Burner for further evaluation, found to have coronary artery disease with 2 clinically significant lesions. Status post PCI with 3 drug-eluting stents. Cardiology consulted medicine for admission. Monitored overnight. Patient did well. Started on goal-directed therapy. Stable for discharge home. Problems addressed as follows: Unstable angina Status post PCI CAD -Status post PCI, 2 drug-eluting stents to the LAD, 1 to the RCA. Successful intervention. See cath report for full details. Initiated on goal-directed therapy including Lipitor 40 mg nightly, aspirin 81 mg daily, Brilinta 90 mg twice daily, and irbesartan 37.5 mg daily along with extended release metoprolol 12 and half milligrams once a day. Screen for thyroid disease and diabetes. TSH and A1c both within normal range. Plan to follow-up with cardiology in the coming week. Stable for discharge home on goal-directed therapy. Discussed plan and new medications with patient. Exam Data for Last 24 hours Vital signs and Labs for Last 24 Hours: Temp Pulse Resp BP Pulse Ox O2 Del Method 97.7 F 70 16 112/67 97 Room Air 01/08/23 04:00 01/08/23 04:00 01/08/23 04:00 01/08/23 04:00 01/08/23 04:00 01/08/23 07:29 Laboratory Results - last 24 hr 01/07/23 14:15: WBC 5.4, RBC 5.36, Hgb 15.8, Hct 49.5 H, MCV 92.4, MCH 29.5, MCHC 31.9, RDW 12.6, Plt Count 254, MPV 7.8, Neut % (Auto) 64.8, Lymph % (Auto) 26.2, [place] % (Auto) 6.1, Eos % (Auto) 2.2, Baso % (Auto) 0.7, Neut # (Auto) 3.5, Lymph # (Auto) 1.4, Kay # (Auto) 0.3, Eos # (Auto) 0.1, Baso # (Auto) 0.0, Sodium 143, Potassium 3.7, Chloride 108 H, Carbon Dioxide 27, Anion Gap 11.7, BUN 13, Creatinine 0.80, Estimated Creat Clear 100, Estimated GFR 75, Est GFR ( Amer) 90, Glucose 108 H, Calcium 9.4 01/07/23 16:06: Activated Clotting Time 270 H* 01/08/23 05:50: WBC 7.0 D, RBC 4.83, Hgb 14.0 D, Hct 44.7, MCV 92.5, MCH 29.0, MCHC 31.4 L, RDW 12.7, Plt Count 238, MPV 8.2, Neut % (Auto) 70.6, Lymph % (Auto) 20.8, Kay % (Auto) 5.9, Eos % (Auto) 2.3, Baso % (Auto) 0.4, Neut # (Auto) 5.0, Lymph # (Auto) 1.5, Kay # (Auto) 0.4, Eos # (Auto) 0.2, Baso # (Auto) 0.0, Sodium 143, Potassium 3.8, Chloride 111 H, Carbon Dioxide 27, Anion Gap 8.8, BUN 15, Creatinine 0.80, Estimated Creat Clear 101, Estimated GFR 75, Est GFR ( Amer) 90, Glucose 114 H, Calcium 8.7, Magnesium 2.1, Total Bilirubin 0.2, AST 26, ALT 18, Alkaline Phosphatase 74, Total Protein 6.0 L, [place]
--- NOTE | 2023-01-08 08:15 | HMH.PHAINT1 ---
Pharmacy Intervention Comments: Patient's home medications reviewed and verified with external pharmacy and patient, -Russel Cutler, Pharm Student
--- NOTE | 2023-01-08 08:31 | CA_ITS ---
APPROVED REPORT EXAM: Comprehensive 2D, Doppler, and color-flow Echocardiogram Property Caretaker: Kaity Hamilton, RCS, RVS Ht: 5 ft 4 in Wt: 174lbs BSA: 1.84 HR: 76 bpm BP: 128/86 mmHg Rhythm: NSR Indications: CAD S/P 3 stents 01/07/2023, EXSMOKER, CP, Family HX-HD 2D Dimensions Aortic Root 2.57 cm F: 2.7 - 3.3 LA Volume 27.40 mL Left Atrium 2.66 cm F: 2.7 - 3.8 LA Volume Index 14.81 mL/m2 (M/F) 16-34 LVOT 1.80 cm (M/F) 1.5-2.5 M-Mode Dimensions RVDd 2.01 cm (0.9-2.6) LA Diam 3.73 cm (1.9-4.0) LVDd 4.79 cm (3.5-5.7) Ao Diam 2.81 cm (2.0-3.7) LVDs 3.19 cm (3.5-5.7) IVSd 0.74 cm (0.6-1.1) PWd 0.91 cm (0.6-1.1) EF (Teich) 62.10% EPSs 0.37 cm FS 33.40% EDV (Teich) 107.00 mL TAPSE 2.40 (<1.7) ESV (Teich) 40.60 mL LV Diastology E Decel Time 260.00 (160-240 msec) E/A Ratio 0.84 MED E' 9.00 (< 7 cm/sec) MED A' 15.40 cm/s E'/MED E' Ratio 9.54 (>14) LAT E' 11.50 (<10 cm/sec) LAT A' 10.20 cm/s E/LAT E' Ratio 7.47 (>14) Aortic Valve LVOT Max 98.00 (70-110 cm/s) LVOT VTI 19.57 cm AoV Peak Rishi. 156.00 (50-130 cm/s) AO Peak GR. 9.70 mmHg AO Mean GR. 4.90 (<5 mmHg) AO VTI 27.94 (18-25 cm) KOLTON (VTI) 1.78 (2.5-4.5 cm2) Mitral Valve MV A Velocity 102.00 (40-130 cm/s) E/A Ratio 0.84 MV Decel. Time 260.00 (160-240 ms) Pulmonary Valve PV Peak Velocity 91.00 (50-150 cm/s) Left Ventricle The left ventricle is normal size. The left ventricular systolic function is normal. The left ventricular ejection fraction is within the normal range. There is normal left ventricular wall thickness. There is normal LV segmental wall motion. The left ventricular diastolic function is normal. LVEF is 65%. Right Ventricle The right ventricle is normal size. The right ventricular systolic function is normal. Atria The left atrium size is normal. The right atrium size is normal. There is no Doppler evidence of interatrial shunt. Aortic Valve The aortic valve is normal in structure. There is no aortic valvular stenosis. No aortic regurgitation is present. Mitral Valve The mitral valve is normal in structure. There is no mitral valve regurgitation noted. Tricuspid Valve The tricuspid valve leaflets are thin and pliable. There is trace tricuspid valve regurgitation noted. RVSP is normal. Pulmonic Valve The pulmonary valve is normal in structure. Trace pulmonic regurgitation. Great Vessels The aortic root is normal in size. IVC is normal in size and collapses >50% with inspiration. Pericardium There is no pericardial effusion. Other Information Study Quality: Adequate Conclusion Normal biventricular systolic function. No significant valvular disease. Electronically signed by : Елена Andersen, 01/08/2023 18:07:54
[2023-01-08 08:35] LABS: Hemoglobin A1C 5.4 % (4.0-6.0)
--- NOTE | 2023-01-08 12:11 | EXP.CARD.PN ---
Subjective Subjective Date: 01/08/23 Time: 10:30 Principal diagnosis: CAD s/p stenting Interval history: This is a 52-year-old white female who was evaluated in cardiology clinic yesterday. She was sent for left cardiac catheterization following her office visit. The patient had stenting to her LAD with 2 drug-eluting stents and stenting to her right coronary artery with 1 drug-eluting stent. The patient was kept overnight due to her highly abnormal EKG and unstable angina. She does report having some soreness in her chest immediately following her stenting but her chest pain and pressure have resolved at this point. She denies any shortness of breath or edema. She denies any fever, chills, nausea, vomiting, diarrhea, PND or orthopnea. She has no right radial pain or hematoma. [facility] shows: Severe two-vessel coronary disease as described above Successful stenting the proximal to mid LAD severe disease reduced to 0% with 2 contiguous drug-eluting stents Jailing of a 2.25 to 2.5 mm first diagonal artery which is accompanied by HADLEY-3 flow and should be best managed medically Successful stenting of the ostial proximal dominant right coronary severe disease reduced to 0% with 1 drug-eluting stent Normal ejection fraction Normal left ventricular end-diastolic pressure PLAN 1. Dual antiplatelet therapy 2. LDL less than 55 to be achieved with high intensity statin 3. Avoidance of tobacco product 4. Risk factor modification 5. Cardiac rehabilitation 6. Recommend patient be admitted and monitored overnight due to her unstable angina and highly abnormal EKG. Furthermore there was abnormal flow down the dominant right coronary artery and I do anticipate patient's troponin are likely positive suggesting or diagnosing a non-STEMI 7. Recommend obtaining troponin level tonight and changing diagnosis to non-STEMI if elevated Exam Data for Last 24 hours Vital signs and Labs for Last 24 Hours: Temp Pulse Resp BP Pulse Ox O2 Del Method 98.4 F 76 18 132/74 97 Room Air 01/08/23 08:00 01/08/23 08:00 01/08/23 08:00 01/08/23 08:00 01/08/23 08:00 01/08/23 10:32 Laboratory Results - last 24 hr 01/07/23 14:15: WBC 5.4, RBC 5.36, Hgb 15.8, Hct 49.5 H, MCV 92.4, MCH 29.5, MCHC 31.9, RDW 12.6, Plt Count 254, MPV 7.8, Neut % (Auto) 64.8, Lymph % (Auto) 26.2, [place] % (Auto) 6.1, Eos % (Auto) 2.2, Baso % (Auto) 0.7, Neut # (Auto) 3.5, Lymph # (Auto) 1.4, [place] # (Auto) 0.3, Eos # (Auto) 0.1, Baso # (Auto) 0.0, Sodium 143, Potassium 3.7, Chloride 108 H, Carbon Dioxide 27, Anion Gap 11.7, BUN 13, Creatinine 0.80, Estimated Creat Clear 100, Estimated GFR 75, Est GFR ( Amer) 90, Glucose 108 H, Calcium 9.4 01/07/23 16:06: Activated Clotting Time 270 H* 01/08/23 05:50: WBC 7.0 D, RBC 4.83, Hgb 14.0 D, Hct 44.7, MCV 92.5, MCH 29.0, MCHC 31.4 L, RDW 12.7, Plt Count 238, MPV 8.2, Neut % (Auto) 70.6, Lymph % (Auto) 20.8, [place] % (Auto) 5.9, Eos % (Auto) 2.3, Baso % (Auto) 0.4, Neut # (Auto) 5.0, Lymph # (Auto) 1.5, [place] # (Auto) 0.4, Eos # (Auto) 0.2, Baso # (Auto) 0.0, Sodium 143, Potassium 3.8, Chloride 111 H, Carbon Dioxide 27, Anion Gap 8.8, BUN 15, Creatinine 0.80, Estimated Creat Clear 101, Estimated GFR 75, Est GFR ( Amer) 90, Glucose 114 H, Hemoglobin A1c 5.4, Calcium 8.7, Magnesium 2.1, Total Bilirubin 0.2, AST 26, ALT 18, Alkaline Phosphatase 74, Total Protein 6.0 L, Albumin 3.8, Globulin 2.2, Albumin/Globulin Ratio 1.7, Triglycerides 127, Cholesterol 163, LDL Cholesterol Direct 94.27 L, VLDL Cholesterol 25, HDL Cholesterol 44, Cholesterol/HDL Ratio 3.7 H, TSH 1.38 I & O for Last 24 hours: Intake & Output 01/05/23 01/06/23 01/07/2327/23 23:59 23:59 23:59 23:59 Intake Total 240 / 240 240 / 240 Output Total 0 / 0 0 / 0 Balance 240 / 240 240 / 240 Weight 173 lb 2 oz 174 lb 11.2 oz Constitutional Constitutional: no acute distress and average body habitus *Routine HEENT Exam Head: Present normocephalic and atraumatic
--- NOTE | 2023-01-08 13:51 | HMH.PHACL ---
PHA Claims Representative Discharge Med Online Media Director: Terri Sutherland has received discharge medication counseling on the following medications: ASPIRIN 81 MG DAILY ATORVASTATIN 40 MG HS BRILINTA 90 MG BID IRBESARTAN 37.5 MG DAILY METOPROLOL 12.5 MG DAILY
--- NOTE | 2023-01-09 16:17 | CARE MANAGER ---
Called and spoke with patient regarding recent discharge. She stated that she is doing well, no complaints or concerns voiced at time of call, was able to warehouse picker her medications prescribed at discharge and aware of f/u appts.
== END 2023-01-08 13:22 | disposition home or self-care (01) ==
LOC: 2ND 16:52
PROVIDERS: Internal Medicine; Admitting Provider Internal Medicine Adolescent Medicine; PCP Family Medicine; Visit Provider Internal Medicine Adolescent Medicine
DX: I21.4 Non-ST elevation (NSTEMI) myocardial infarction; I25.110 Atherosclerotic heart disease of native coronary artery with unstable angina pectoris; I10 Essential (primary) hypertension; E78.5 Hyperlipidemia, unspecified; R94.31 Abnormal electrocardiogram [ECG] [EKG]
CPT/HCPCS: 36415; 80048; 80053; 80061; 83036; 83735; 84443; 85025; 85347; 92928; 93306; 93458; 99152; 99153; C1725; C1769; C1876; C9600; G0378; J1644; J2405; Q9967

== ENCOUNTER 2023-01-11 10:19 | Emergency (ER) | payer BC, SELFPAY ==
[2023-01-11 10:20] VITALS: BP 126/78; PULSE 70; RESP 18; TEMP 36.8; O2SAT 98; BMI 29.8
--- NOTE | 2023-01-11 10:31 | EXP.UTC ---
Discharge Plan Disposition Patient Disposition: Home, Self-Care Condition: Good Prescriptions Prescriptions: No Action multivitamin Tablet 1 tab PO DAILY atorvastatin 40 mg Tablet 40 mg PO HS 30 Days Qty: 30 0RF irbesartan 75 mg Tablet 37.5 mg PO DAILY 30 Days Qty: 15 0RF aspirin 81 mg Tablet,Chewable 81 mg PO DAILY Brilinta 90 mg Tablet 90 mg PO BID metoprolol succinate 25 mg Tablet Extended Release 24 Hr 12.5 mg PO DAILY 30 Days Qty: 15 0RF Referrals Follow up/Referrals: Luís Sanders DO [Staff Physician] - See instructions Renato Sanchez MD [Primary Care Provider] - See instructions Activity Restrictions/Add. Instructions Additional Instructions/Restrictions: Rest the extremity, Elevate the extremity as tolerated while you are resting. Take tylenol for pain Follow up with Dr. Sanders (orthopedics). I put in a referral but you need to call his office and schedule an appointment. Follow up with your regular doctor. GO TO THE ER FOR ANY WORSENING SYMPTOMS Clinical Impressions Clinical Impression: Right knee pain, Arthritis of right knee Instructions Patient Instructions: How to Use Crutches, DI for Knee Pain, How to Use a Knee Immobilizer Discharge ED Provider: Dc Hill [facility] General Stated complaint: right knee pain, no accident Time Seen by Provider: 01/11/23 10:31 History of Present Illness Provider Complaint: She states that for the past 3 days she has had right knee pain and swelling. She denies any injury. She has had similar episodes in the past. She states that she used to get her knee injected by ortho with steroids for this issue. She had a heart cath done about 1 week ago. She had stents placed then. Related Data Home Medications Medication Instructions Recorded Confirmed multivitamin 1 tab PO DAILY Supplement 02/25/19 01/07/23 aspirin 81 mg chewable tablet 81 mg PO DAILY Heart Health 01/08/23 01/08/23 ticagrelor 90 mg tablet (Brilinta) 90 mg PO BID Antiplatelet/CAD 01/08/23 01/08/23 Previous Rx's Medication Instructions Recorded atorvastatin 40 mg tablet 40 mg PO HS 30 days #30 tabs 01/08/23 irbesartan 75 mg tablet 37.5 mg PO DAILY 30 days #15 tabs 01/08/23 metoprolol succinate 25 mg 12.5 mg PO DAILY 30 days #15 tabs 01/08/23 tablet,extended release 24 hr Allergies Allergy/AdvReac Type Severity Reaction Status Date / Time fentanyl AdvReac Intermediate Nausea Verified 01/07/23 15:37 midazolam [From Versed] AdvReac Intermediate Confusion Verified 01/07/23 17:36 [facility] Disclaimer: The information contained in this section may have been updated after the patient was seen, as this information can be updated by other users. Medical History Abnormal electrocardiogram [ECG] [EKG] CAD (coronary artery disease) History of left heart catheterization HLD (hyperlipidemia) HTN (hypertension) Osteoarthritis Unstable angina Surgical History H/O section H/O: hysterectomy Stented coronary artery Family History Other No significant family history Social History Smoking Status: Never smoker alcohol intake: former current occupational status: employed Travel in the last 8 weeks: None household members: family housing: house ROS Obtained: Yes All systems reviewed & no additional complaints except as documented Constitutional Constitutional: Denies chills and Denies fever(s) Eyes Eyes: Denies eye discharge ENT Ears, Nose, Mouth, and Throat: Denies dizziness, Denies otalgia and Denies sore throat Cardiovascular Cardiovascular: Denies chest pain Respiratory Respiratory: Denies shortness of breath, Denies chest congestion, Denies cough, Denies stridor and Denies wheezing Gastroin
--- NOTE | 2023-01-11 10:34 | XR_ITS ---
PROCEDURE INFORMATION: Exam: XR Right Knee Exam date and time: 01/11/2023 11:32 AM Age: 52 years old Clinical indication: Pain; Knee; Right; Additional info: Popped-- unable to straighten or twist knee at all and can not weight bear TECHNIQUE: Imaging protocol: Radiologic exam of the right knee. Views: 3 views. COMPARISON: MR KNEE RT WO CON 03/10/2019 8:23 AM FINDINGS: Bones/joints: Moderately severe patellofemoral degenerative changes. Multiple loose bodies posterior mid aspect of the knee. Mild changes of chondrocalcinosis. Small suprapatellar effusion. Prominent foci of subcortical cystic degenerative change in the region of the intercondylar notch. Similar findings present on the previous MRI examination. Soft tissues: Normal. IMPRESSION: 1. Moderately severe degenerative changes patellofemoral articulation . Near [id number] configuration. Associated loose bodies as described above. 2. No evidence of acute osseous injury.
[2023-01-11 12:33] VITALS: BP 126/78; PULSE 70; RESP 18; TEMP 36.8; O2SAT 98
== END 2023-01-11 12:35 | disposition home or self-care (01) ==
PROVIDERS: Emergency Provider Nurse Practitioner Family; PCP Family Medicine
DX: M25.561 Pain in right knee (principal); M17.11 Unilateral primary osteoarthritis, right knee; M25.461 Effusion, right knee; I25.10 Atherosclerotic heart disease of native coronary artery without angina pectoris; I11.9 Hypertensive heart disease without heart failure; E78.5 Hyperlipidemia, unspecified; Z95.5 Presence of coronary angioplasty implant and graft
CPT/HCPCS: 73562; 99212; 99214; G0463

== ENCOUNTER → 2023-02-09 16:11 | Outpatient (CLI) | payer BC, SELFPAY ==
[2023-02-09 18:01] LABS: Chol/HDL Ratio 2.6 (1-3.5); Cholesterol 127 mg/dl (140-200); HDL Cholesterol 49 mg/dl (40-60); Triglycerides 153 mg/dl (30-150); VLDL Cholesterol 31 mg/dL (0-40)
[2023-02-09 18:12] LABS: Direct LDL Cholesterol 56.05 mg/dL (100-129)
== END ==
PROVIDERS: PCP Family Medicine; Visit Provider Internal Medicine
DX: R07.89 Other chest pain (principal); I25.10 Atherosclerotic heart disease of native coronary artery without angina pectoris; I21.4 Non-ST elevation (NSTEMI) myocardial infarction; E78.5 Hyperlipidemia, unspecified
CPT/HCPCS: 36415; 80061

== ENCOUNTER → 2023-02-13 06:50 | Outpatient (CLI) | payer BC, SELFPAY ==
--- NOTE | 2023-02-13 | CA_ITS ---
APPROVED REPORT Exam: Pharmacologic Technologist: Gayle Barber, Ht: 5 ft 4 in Wt: 172 lbs BSA: 1.83 m2 HR: 73 bpm BP: 128/73 mmHg Rhythm: NSR Medical History Medical History: HTN, Hyperlipidemia Medications: Irbesartan,,,,, Aspirin,,,,, Atorvastatin,,,,, Metoprolol Succinate,,,,, BRILINTA,,,,, Multivitamin,,,,, Allergies: FENTANYL, MIDAZOLAM Cardiac Risk Factors: HTN, Hyperlipidemia, Smoking Stress Test Details Test: LEXISCAN HR Resting HR: 65 bpm Max Heart Rate (APMHR): 166 bpm Max HR Achieved: 108 bpm Target HR (85% APMHR): 141 bpm % of APMHR: 65 BP Resting BP: 128/73 mmHg Max BP: 128/73 mmHg ECG Resting ECG: NSR Stress ECG: No ST changes Arrhythmia: None Clinical Exercise duration: 04:01 min Highest Stage Achieved: Exercise capacity: 1.0 METs Stress ECG Conclusion PT HAD SOA, LIGHT-HEADED, MILD NAUSEA NO CP NONE NO SIGNIFICANT ST CHANGES UNREMARKABLE LEXISCAN STRESS MYOVIEW IMAGES REPORTED SEPARATELY Test Summary REST 05:00 . . 65 . 128/ 73 . . Stage 1 01:00 . . 100 . . . . Stage 2 01:00 . . 107 . . . . Stage 3 01:00 . . 98 . . . . Stage 4 01:00 . . 83 . 106/ 67 . . Stage 4 01:01 . . 83 . 106/ 67 . Stop exercise at 04:01 RECOVERY 01:00 . . 79 . 105/ 64 . . RECOVERY 02:00 . . 77 . 110/ 58 . . RECOVERY 03:00 . . 73 . 112/ 61 . . RECOVERY 04:00 . . 70 . 111/ 78 . . RECOVERY 05:00 . . 67 . 111/ 78 . . RECOVERY 05:17 . . 69 . 117/ 81 . . Electronically signed by : Елена Andersen, 02/16/2023 19:40:43
--- NOTE | 2023-02-13 07:00 | NM_ITS ---
APPROVED REPORT Exam: Nuclear Stress Test Indication: chest pain.soa..palpitations..fatigue..high cholesterol..family hx Patient Location: Outpatient Stress Tech: Gayle Barber [place] Tech:Valencia MELLISA Capone RT(R)(N) Ht: 5 ft 4 in Wt: 172 lbs Bra Size: 36c HR: 65 bpm BP: 128/73 mmHg BSA: 1.83 m2 Rhythm: NSR TID: 1.18 BMI: 29.5 History: chest pain.soa..palpitations..fatigue..high cholesterol..family hx Procedure: Patient received 0.4 mg of intravenous Lexiscan, resting heart rate 65 bpm, resting blood pressure 128/73 mmHg, with Lexiscan maximum heart rate achieved was 108 bpm which is 85 % of the maximum predicted heart rate and blood pressure was 128/73 mmHg. Cardiac Stress and Resting SPECT Images: Cardiac Stress and Resting SPECT images were obtained using technetium 99m Myoview 31.1 mCi stress and 10.50 mCi at rest. Resting and stress imaging in supine and prone positions demonstrate no evidence of fixed or reversible perfusion defects. Gated imaging demonstrates normal global and regional LV systolic function. LVEF is calculated at 57%. Conclusion: No evidence of fixed or reversible perfusion defects. Gated imaging demonstrates normal global and regional LV systolic function. LVEF is calculated at 57%. Electronically signed by : Елена Andersen, 02/16/2023 19:42:14
== END ==
PROVIDERS: PCP Family Medicine; Visit Provider Internal Medicine
DX: I21.4 Non-ST elevation (NSTEMI) myocardial infarction (principal); I25.10 Atherosclerotic heart disease of native coronary artery without angina pectoris; R07.89 Other chest pain; E78.5 Hyperlipidemia, unspecified
CPT/HCPCS: 78452; 93017; A9502; J2785

== ENCOUNTER 2023-04-05 15:38 | Emergency (ER) | payer BC, SELFPAY ==
--- NOTE | 2023-04-05 15:35 | ECG_ITS ---
APPROVED REPORT Exam: Resting ECG HR:76 bpm ECG Measurements Heart Rate 76 AXES IN 141 P 54 QRSd 93 QRS 58 QT 373 T 59 QTc 404 Conclusion SINUS RHYTHM NORMAL ECG UNCONFIRMED REPORT Electronically signed by : Nav Buck MD 04/06/2023 08:31:19
[2023-04-05 15:38] VITALS: BP 137/92; PULSE 88; RESP 16; TEMP 37; O2SAT 99; BMI 29.7
--- NOTE | 2023-04-05 15:46 | XR_ITS ---
PROCEDURE INFORMATION: Exam: XR Chest Exam date and time: 04/05/2023 4:10 PM Age: 52 years old Clinical indication: Sternal or substernal pain; Prior surgery; Surgery date: 1-6 months; Surgery type: Cardiac stents placed. ; Additional info: Chest pain TECHNIQUE: Imaging protocol: Radiologic exam of the chest. Views: 1 view. Portable upright chest x-ray. COMPARISON: [facility]/O MRI-C-SPINE W/O 12/05/2016 4:25 PM FINDINGS: Lungs: No consolidation or lung nodules. Pleural spaces: No pleural effusion. No pneumothorax. Heart/Mediastinum: No abnormalities. No cardiomegaly. No pulmonary vascular congestion. Bones/joints: No fractures or bone lesions. IMPRESSION: No acute findings in the chest.
--- NOTE | 2023-04-05 15:53 | HMH.EDGENADL ---
Discharge Plan Disposition Patient Disposition: Home, Self-Care Prescriptions Prescriptions: No Action multivitamin Tablet 1 tab PO DAILY clopidogrel [Plavix] 75 mg tablet 75 mg PO DAILY Qty: 90 3RF irbesartan 75 mg tablet 37.5 mg PO DAILY Qty: 45 3RF metoprolol succinate 25 mg tablet extended release 24 hr 12.5 mg PO DAILY Qty: 45 3RF ranolazine 500 mg tablet extended release 12 hr 500 mg PO BID Qty: 180 3RF aspirin 81 mg tablet,chewable 81 mg PO DAILY Qty: 30 11RF pitavastatin calcium 2 mg tablet 2 mg PO DAILY Qty: 30 2RF Referrals Follow up/Referrals: Matt Thomas MD [Staff Physician] - See instructions (for discussion regarding potential holter/event monitor given concern for arrhythmia ) Provider,MD Jennifer [Primary Care Provider] - See instructions Activity Restrictions/Add. Instructions Additional Instructions/Restrictions: Please follow-up with Dr. Thomas as discussed return to the emergency department any worsening symptoms. Clinical Impressions Clinical Impression: Near syncope, Palpitation Discharge ED Provider: Isabelle Artis General Adult HPI General Chief complaint: Chest Pain Stated complaint: Chest pain Time Seen by Provider: 04/05/23 15:45 Mode of Arrival: Ambulatory Source of Information: Patient Limitations: No Limitations Description of Symptoms (Recalled from ER Triage Doc. by RN): Pt reports after eating lunch she began having chest pressure/heaviness on L side of chest, nauseated and felt like she was going to pass out. Pt reports currently still having nausea and feeling lightheaded. Reports upon arrival was having pain between her shoulder blades but states that went away quickly. Pt reports has hx of stent placement. History of Present Illness HPI narrative: Patient is a 52-year-old female with a history of coronary disease status post multiple stents earlier this year presents today with near syncopal episode. She states that she was feeling fine about 1:00 and leading up to this and around 2:00 she had sudden onset of some shortness of breath lightheadedness near syncope and heart palpitations. She also stated that she had a low bit of discomfort in her chest and her back but no pain leading up to this and no pain now. No history of an arrhythmia that she is aware of. Other than some fatigue right now she has no symptoms. Related Data Home Medications Medication Instructions Recorded Confirmed multivitamin 1 tab PO DAILY Supplement 02/25/19 03/02/23 Previous Rx's Medication Instructions Recorded clopidogrel 75 mg tablet (Plavix) 75 mg PO DAILY #90 tabs 03/02/23 irbesartan 75 mg tablet 37.5 mg PO DAILY #45 tabs 03/02/23 metoprolol succinate 25 mg 12.5 mg PO DAILY #45 tabs 03/02/23 tablet,extended release 24 hr ranolazine 500 mg tablet,extended 500 mg PO BID #180 tabs 03/02/23 release,12 hr aspirin 81 mg chewable tablet 81 mg PO DAILY Heart Health #30 03/13/23 tabs pitavastatin calcium 2 mg tablet 2 mg PO DAILY #30 tabs 03/25/23 Allergies Allergy/AdvReac Type Severity Reaction Status Date / Time fentanyl AdvReac Intermediate Nausea Verified 03/02/23 15:03 midazolam [From Versed] AdvReac Intermediate Confusion Verified 03/02/23 15:03 [facility] Disclaimer: The information contained in this section may have been updated after the patient was seen, as this information can be updated by other users. Medical History Abnormal electrocardiogram [ECG] [EKG] CAD (coronary artery disease) History of left heart catheterization HLD (hyperlipidemia) HTN (hypertension) Osteoarthritis Unstable angina Surgical History H/O section H/O: hysterectomy Stented coronary artery Family History Other No significant family history Social History (Reviewed
[2023-04-05 15:58] LABS: Basophils # 0.1 K/mm3 (0-0.2); Eosinophils # 0.3 K/mm3 (0.0-0.4); Hematocrit 40.7 % (37.0-47.0); Hemoglobin 14.6 g/dL (12.2-16.2); Lymphocytes # 1.8 K/mm3 (0.7-4.5); Lymphocytes % 36.2 % (10-50); Mean Corpuscular HGB Conc 35.9 g/dL (31.8-35.4); Mean Corpuscular Hemoglobin 33.3 pg (27.0-31.2); Mean Corpuscular Volume 92.9 fl (81-99); Mean Platelet Volume 7.9 fl (7.4-10.4); Monocytes # 0.3 K/mm3 (0.1-1.0); Monocytes % 6.2 % (1.7-9.3); Neutrophils # 2.6 K/mm3 (1.8-7.8); Neutrophils % 51.7 % (37.0-80.0); Platelet Count 254 K/mm3 (142-424); Red Blood Count 4.38 M/mm3 (4.20-5.40); Red Cell Distribution Width 13.1 % (11.5-17.5); White Blood Count 4.9 K/mm3 (4.8-10.8)
[2023-04-05 16:00] VITALS: BP 113/78; PULSE 68; RESP 16; O2SAT 99
[2023-04-05 16:01] LABS: Chloride 107 mmol/L (98-107); Potassium 3.7 mmoL/L (3.5-5.1); Sodium 141 mmol/L (136-145)
[2023-04-05 16:04] LABS: Alanine Aminotransferase 23 U/L (12-78); Albumin Level 4.5 g/dl (3.5-5.0); Albumin/Globulin Ratio 1.7 (1.1-1.8); Alkaline Phosphatase 84 U/L (38-126); Anion Gap 11.7 mEq/L (5-15); Aspartate Amino Transferase 35 U/L (14-36); Bilirubin,Total 0.5 mg/dl (0.2-1.3); Blood Urea Nitrogen 18 mg/dl (7-17); Carbon Dioxide 26 mmol/L (22.0-30.0); Creatinine Clearance Estimated 100 mL/min (50-200); Estimated Glomerular Filt Rate 75 ml/min (>60); GFR (African American) 90 ML/MIN (>60); Globulin 2.7 g/dL (1.3-3.2); Magnesium 1.7 mg/dl (1.6-2.3); Total Protein,Serum 7.2 g/dl (6.3-8.2)
[2023-04-05 16:05] LABS: Calcium 8.8 mg/dl (8.4-10.2); Glucose 94 mg/dl (74-100)
[2023-04-05 16:18] LABS: Troponin I < 0.01 ng/ml (0.00-0.034)
[2023-04-05 16:30] VITALS: BP 118/76; PULSE 68; RESP 16; O2SAT 97
[2023-04-05 16:35] LABS: Thyroid Stimulating Hormone 1.45 uIU/mL (0.465-4.68)
[2023-04-05 17:00] VITALS: BP 135/80; PULSE 68; RESP 16; O2SAT 98
--- NOTE | 2023-04-05 17:27 | PC.NURSE ---
Dr. Artis at reassessing pt.
[2023-04-05 17:30] VITALS: BP 118/78; PULSE 71; RESP 19; O2SAT 97
[2023-04-05 17:52] VITALS: BP 118/78; PULSE 71; RESP 19; TEMP 37; O2SAT 97
[2023-04-05 18:25] LABS: Troponin I < 0.01 ng/ml (0.00-0.034)
== END 2023-04-05 17:52 | disposition home or self-care (01) ==
PROVIDERS: Emergency Provider Student in an Organized Health Care Education/Training Program
DX: R55 Syncope and collapse (principal); R00.2 Palpitations
CPT/HCPCS: 71045; 80053; 83735; 84443; 84484; 85025; 93005; 99285

== ENCOUNTER → 2023-04-13 12:26 | Outpatient (CLI) | payer BC, SELFPAY | PROVIDERS: PCP Family Medicine; Visit Provider Physician Assistant | DX: R06.00 Dyspnea, unspecified (principal); R07.89 Other chest pain; R00.2 Palpitations; R55 Syncope and collapse; I25.10 Atherosclerotic heart disease of native coronary artery without angina pectoris; I21.4 Non-ST elevation (NSTEMI) myocardial infarction; E78.5 Hyperlipidemia, unspecified; R94.30 Abnormal result of cardiovascular function study, unspecified | CPT/HCPCS: 93270 ==

== ENCOUNTER 2023-08-01 18:53 | Emergency (ER) | payer BC, SELFPAY ==
[2023-08-01 19:25] VITALS: BP 131/77; PULSE 76; RESP 18; TEMP 36.7; O2SAT 99; BMI 33.7
[2023-08-01 19:55] LABS: UTC Influenza A Antigen Negative (Negative)
[2023-08-01 19:56] LABS: UTC Influenza B Antigen Negative (Negative)
--- NOTE | 2023-08-01 20:03 | ED_ITS ---
Discharge Plan Disposition Patient Disposition: Home, Self-Care Condition: Good Prescriptions Prescriptions: New amoxicillin 875 mg tablet 875 mg PO BID 10 Days Qty: 20 0RF fluticasone propionate [Flonase Allergy Relief] 50 mcg/actuation spray,suspension 1 spray intranasal Q12H Qty: 16 1RF Rx Instructions: administer into each nostril No Action multivitamin Tablet 1 tab PO DAILY clopidogrel [Plavix] 75 mg tablet 75 mg PO DAILY Qty: 90 3RF irbesartan 75 mg tablet 37.5 mg PO DAILY Qty: 45 3RF metoprolol succinate 25 mg tablet extended release 24 hr 12.5 mg PO DAILY Qty: 45 3RF nitroglycerin 0.4 mg tablet, sublingual 0.4 mg sublingual Q5M PRN (Reason: chest pain) Qty: 25 0RF Rx Instructions: do not exceed 3 doses per episode aspirin 81 mg tablet,chewable 81 mg PO DAILY Qty: 30 11RF pitavastatin calcium 2 mg tablet 2 mg PO DAILY Qty: 30 2RF Referrals Follow up/Referrals: Renato Sanchez MD [Primary Care Provider] - See instructions Clinical Impressions Clinical Impression: Acute maxillary sinusitis Qualifiers: Recurrence: not specified as recurrent Qualified Code(s): J01.00 - Acute maxillary sinusitis, unspecified Instructions Patient Instructions: DI for Sinusitis Discharge ED Provider: Bessie Lopez [facility] General Stated complaint: headache,nose is bleeding,nausea Mode of Arrival: Ambulatory Source of Information: Patient Limitations: No Limitations Time Seen by Provider: 08/01/23 19:51 Description of Symptoms (Recalled from Triage Doc. by RN): PATIENT C/O SINUS PRESSURE WITH BLEEDING, EAR PAIN, AND BODY ACHES X 2 DAYS HEENT Symptoms (Recalled from RN notes): Yes Resp Symptoms (Recalled from RN notes): No Skin Symptoms (Recalled from RN notes): No MS Symptoms (Recalled from RN notes): No Functional Status (Recalled from RN notes): WNL Related Data Home Medications Medication Instructions Recorded Confirmed multivitamin 1 tab PO DAILY Supplement 02/25/19 06/04/23 Previous Rx's Medication Instructions Recorded clopidogrel 75 mg tablet (Plavix) 75 mg PO DAILY #90 tabs 03/02/23 irbesartan 75 mg tablet 37.5 mg PO DAILY #45 tabs 09/18/23 metoprolol succinate 25 mg 12.5 mg PO DAILY #45 tabs 03/02/23 tablet,extended release 24 hr aspirin 81 mg chewable tablet 81 mg PO DAILY Heart Health #30 03/13/23 tabs pitavastatin calcium 2 mg tablet 2 mg PO DAILY #30 tabs 03/25/23 nitroglycerin 0.4 mg sublingual 0.4 mg sublingual Q5M PRN chest 04/13/23 tablet pain #25 tabs amoxicillin 875 mg tablet 875 mg PO BID 10 days #20 tabs 08/01/23 fluticasone propionate 50 1 spray intranasal Q12H #16 grams 08/01/23 mcg/actuation nasal spray,suspension (Flonase Allergy Relief) Allergies Allergy/AdvReac Type Severity Reaction Status Date / Time isosorbide Allergy Verified 08/01/23 19:35 fentanyl AdvReac Intermediate Nausea Verified 06/04/23 13:09 midazolam [From Versed] AdvReac Intermediate Confusion Verified 06/04/23 13:09 Worker's Comp Is this a Worker's Comp case?: No [facility] Disclaimer: The information contained in this section may have been updated after the patient was seen, as this information can be updated by other users. Medical History Abnormal electrocardiogram [ECG] [EKG] CAD (coronary artery disease) History of left heart catheterization HLD (hyperlipidemia) HTN (hypertension) Osteoarthritis Unstable angina Surgical History H/O section H/O: hysterectomy Stented coronary artery Family History Other No significant family history Social History Smoking Status: Never smoker alcohol intake: former current occupational status: employed Travel in the last 8 weeks: None household members: family housing: house ROS Obtained: Yes All systems reviewed & no additional complaints except as documented Constitutional Constitutional: Reports system reviewed and no additional complaints, except as documented, Reports headache(s) and Reports malaise Eyes Eyes: Reports system reviewed and no additional complaints, except as documented ENT Ears, Nose, Mouth, and Throat: Reports system reviewed and no additional complaints, except as documented, Reports epistaxis, Reports headache(s), Reports nasal discharge and Reports sinus pressure Comments: reports green nasal drainage with bloody streaks. Cardiovascular Cardiovascular: Reports system reviewed and no additional complaints, except as documented Respiratory Respiratory: Reports system reviewed and no additional complaints, except as documented Gastrointestinal Gastrointestingal: Reports system reviewed and no additional complaints, except as documented, diarrhea and nausea Comments: reports grandkids have had similar symptoms. Genitourinary Female Genitourinary: Reports system reviewed and no additional complaints, except as documented Musculoskeletal Musculoskeletal: Reports system reviewed and no additional complaints, except as documented Integumentary/Breasts Skin/Breast: Reports system reviewed and no additional complaints, except as documented Neurologic Neurologic: Reports system reviewed and no additional complaints, except as documented and Reports headache(s) Endocrine Endocrine: Reports system reviewed and no additional complaints, except as documented Hematologic/Lymphatic Henatologic/Lymphatic: Reports system reviewed and no additional complaints, except as documented Allergic/Immunologic Allergic/Immunologic: Reports system reviewed and no additional complaints, except as documented Physical Exam General General appearance: alert and in no apparent distress Head Head exam: atraumatic and normocephalic Eye Eye exam: Present normal appearance Neck Neck exam: Present normal inspection Chest Chest inspection: Present normal inspection and symmetric chest wall rise Respiratory Respiratory exam: Present normal lung sounds bilaterally Cardiovascular Cardiovascular exam: Present regular rate, normal rhythm and normal heart sounds Abdominal Exam Abdominal exam: Present soft and normal bowel sounds Extremities Exam Extremities exam: Present normal inspection Back Exam Back exam: Present normal inspection Neurological Exam Neurological exam: Present alert and oriented X3 Psychiatric Psychiatric exam: Present normal affect and normal mood Skin Skin exam: Present warm, dry and intact Lymphatic Lymphatic Findings: no adenopathy Medical Decision Making Brandon Inquiry Pt receiving controlled substance: No Brandon was queried for this patient: No Vital Signs: 08/01/23 19:25 Temperature 98.0 F Temperature Source Oral Pulse Rate [Right Brachial] 76 Respiratory Rate 18 Blood Pressure [Right Arm] 131/77 Blood Pressure Mean [Right Arm] 95 Blood Pressure Source [Right Arm] Automatic Cuff Blood Pressure Position [Right Arm] Sitting 02 Sat by Pulse Oximetry 99 Oxygen Delivery Method Room Air Lab Data Lab results reviewed: Yes I reviewed the patient's lab results. Lab Results 08/01/23 19:27: Influenza Type A Ag Negative, Influenza Type B Ag Negative
[2023-08-01 20:06] VITALS: BP 131/77; PULSE 76; RESP 18; TEMP 36.7; O2SAT 99
== END 2023-08-01 20:08 | disposition home or self-care (01) ==
PROVIDERS: Emergency Provider Nurse Practitioner Family; PCP Family Medicine
DX: J01.00 Acute maxillary sinusitis, unspecified (principal); R51.9 Headache, unspecified; R53.81 Other malaise; I11.9 Hypertensive heart disease without heart failure; E78.5 Hyperlipidemia, unspecified; I25.119 Atherosclerotic heart disease of native coronary artery with unspecified angina pectoris; Z95.5 Presence of coronary angioplasty implant and graft
CPT/HCPCS: 87804; 99212; 99214; G0463

== ENCOUNTER 2023-09-10 06:42 | Outpatient (CLI) | payer BC, SELFPAY ==
--- NOTE | 2023-09-10 | CT_ITS ---
FINAL REPORT TECHNIQUE: Axial CT images were performed through the head. Coronal and sagittal reformatted images were submitted. This study was performed with techniques to keep radiation doses as low as reasonably achievable (ALARA). Individualized dose reduction techniques using automated exposure control or adjustment of mA and/or kV according to the patient's size were employed. CLINICAL HISTORY: HEADACHES COMPARISON: None FINDINGS: The ventricles are normal in size. There is no evidence of hemorrhage. There is no mass or edema identified. There is no abnormal extra-axial fluid seen. The sinuses are well aerated. IMPRESSION: No acute intracranial process. Reviewed, Interpreted and Dictated by Bruce Bishop MD Transcribed by Kylie Gee Authenticated and [facility]
== END 2023-09-10 23:59 ==
LOC: RAD 06:43
PROVIDERS: PCP Family Medicine; Visit Provider Nurse Practitioner Family
DX: R51.9 Headache, unspecified (principal)
CPT/HCPCS: 70450

== ENCOUNTER 2024-02-19 11:39 | Outpatient (CLI) | payer BC, SELFPAY ==
[2024-02-19 12:06] LABS: Basophils # 0.1 K/mm3 (0-0.2); Basophils % 1.3 % (0.1-2.0); Eosinophils # 0.2 K/mm3 (0.0-0.4); Eosinophils % 3.1 % (0.1-12.0); Hematocrit 43.1 % (37.0-47.0); Hemoglobin 14.1 g/dL (12.2-16.2); Lymphocytes # 1.5 K/mm3 (0.7-4.5); Lymphocytes % 29.1 % (10-50); Mean Corpuscular HGB Conc 32.8 g/dL (31.8-35.4); Mean Corpuscular Hemoglobin 31.1 pg (27.0-31.2); Mean Corpuscular Volume 94.8 fl (81-99); Mean Platelet Volume 8.5 fl (7.4-10.4); Monocytes # 0.4 K/mm3 (0.1-1.0); Monocytes % 7.5 % (1.7-9.3); Neutrophils # 3.1 K/mm3 (1.8-7.8); Neutrophils % 59.1 % (37.0-80.0); Platelet Count 280 K/mm3 (142-424); Red Blood Count 4.54 M/mm3 (4.20-5.40); Red Cell Distribution Width 13.1 % (11.5-17.5); White Blood Count 5.3 K/mm3 (4.8-10.8)
[2024-02-19 13:15] LABS: Alanine Aminotransferase 19 U/L (12-78); Albumin Level 3.9 g/dl (3.5-5.0); Alkaline Phosphatase 71 U/L (38-126); Anion Gap 8.1 mEq/L (5-15); Aspartate Amino Transferase 23 U/L (14-36); Bilirubin,Direct 0.2 mg/dl (0.0-0.4); Bilirubin,Indirect 0.5 mg/dL (0.0-0.9); Bilirubin,Total 0.7 mg/dl (0.2-1.3); Bilirubin,Unconjugated 0.5 mg/dL (0.0-1.1); Blood Urea Nitrogen 15 mg/dl (7-17); Calcium 9.5 mg/dl (8.4-10.2); Carbon Dioxide 25 mmol/L (22.0-30.0); Chloride 110 mmol/L (98-107); Chol/HDL Ratio 3.2 (1-3.5); Cholesterol 160 mg/dl (140-200); Estimated Glomerular Filt Rate 74 ml/min (>60); GFR (African American) 90 ML/MIN (>60); Glucose 92 mg/dl (74-100); HDL Cholesterol 50 mg/dl (40-60); Potassium 4.1 mmoL/L (3.5-5.1); Sodium 139 mmol/L (136-145); Total Protein,Serum 6.5 g/dl (6.3-8.2); Triglycerides 84 mg/dl (30-150); VLDL Cholesterol 17 mg/dL (0-40)
[2024-02-19 13:26] LABS: Direct LDL Cholesterol 89.22 mg/dL (100-129)
[2024-02-19 13:47] LABS: Thyroid Stimulating Hormone 2.08 uIU/mL (0.465-4.68)
== END 2024-02-19 23:59 | disposition home or self-care (01) ==
LOC: LAB 11:40
PROVIDERS: PCP Family Medicine; Visit Provider Physician Assistant
DX: I25.118 Atherosclerotic heart disease of native coronary artery with other forms of angina pectoris (principal); Z00.00 Encounter for general adult medical examination without abnormal findings; I10 Essential (primary) hypertension
CPT/HCPCS: 36415; 80048; 80061; 80076; 84443; 85025

== ENCOUNTER 2024-04-01 10:57 | Outpatient (CLI) | payer BC, SELFPAY ==
--- NOTE | 2024-04-01 11:04 | XR_ITS ---
PROCEDURE INFORMATION: Exam: XR Lumbosacral Spine Exam date and time: 04/01/2024 11:07 AM Age: 53 years old Clinical indication: Low back pain; Additional info: Lbp TECHNIQUE: Imaging protocol: Radiologic exam of the lumbosacral spine. Views: 4 or 5 views. COMPARISON: No relevant prior studies available. FINDINGS: Bones/joints: There is grade 2 spondylolisthesis at L5-S1 with bilateral L5 spondylolysis. The vertebral body heights are maintained. There is complete loss of disc height at L5-S1. The remainder of the disc spacers appear to be maintained. Soft tissues: Unremarkable. IMPRESSION: 1. Grade 2 spondylolisthesis at L5-S1 with bilateral L5 spondylolysis. 2. Complete loss of disc height at L5-S1.
== END 2024-04-01 23:59 | disposition home or self-care (01) ==
LOC: RAD 10:59
PROVIDERS: PCP Family Medicine; Visit Provider Nurse Practitioner Family
DX: M54.50 Low back pain, unspecified (principal)
CPT/HCPCS: 72110

== ENCOUNTER 2024-04-14 06:45 | Outpatient (CLI) | payer BC, SELFPAY ==
--- NOTE | 2024-04-14 06:51 | CT_ITS ---
PROCEDURE INFORMATION: Exam: CT Temporal Bones Without Contrast. Exam date and time: 04/14/2024 6:56 AM Age: 53 years old Clinical indication: Pain; Headache; Additional info: R/O mastoiditis, bilaterally TECHNIQUE: Imaging protocol: Computed tomography of the temporal bones without contrast. Radiation optimization: All CT scans at this facility use at least one of these dose optimization techniques: automated exposure control; mA and/or kV adjustment per patient size (includes targeted exams where dose is matched to clinical indication); or iterative reconstruction. COMPARISON: CT HEAD/BRAIN WO CON 09/10/2023 7:05 AM FINDINGS: Right inner ear: Normal. Right ossicles and middle ear: Normal. The middle ear ossicles are intact. Right external auditory canal: Normal. Right facial nerve canal: Normal. Right jugular foramen: No jugular dehiscence. Right carotid canal: No aberrant carotid canal. Right mastoid air cells: Normal. No mastoid effusions. Left inner ear: Normal. Left ossicles and middle ear: Normal. The middle ear ossicles are intact. Left external auditory canal: Normal. Left facial nerve canal: Normal. Left jugular foramen: No jugular dehiscence. Left carotid canal: No aberrant carotid canal. Left mastoid air cells: Normal. No mastoid effusions. Soft tissues: Unremarkable. IMPRESSION: No acute findings.
--- NOTE | 2024-04-14 07:31 | MR_ITS ---
PROCEDURE INFORMATION: Exam: MR Lumbar Spine Without Contrast Exam date and time: 04/14/2024 7:31 AM Age: 53 years old Clinical indication: Low back pain; Patient HX: Lower back pain with right leg numbness and tingling; Additional info: Lbp TECHNIQUE: Imaging protocol: Magnetic resonance imaging of the lumbar spine without contrast. COMPARISON: CR XR LUMBAR SPINE MIN 4V 04/01/2024 11:07 AM FINDINGS: Bones/joints: The lumbar vertebral bodies are normal in height. Grade 2/3 anterolisthesis of L5 on S1. There is abnormal morphology of the bilateral L5 pars interarticularis, and spondylolysis cannot be excluded. Spinal cord: The distal end of the conus medullaris ends at L1-L2, normal in position. Multilevel findings: Degenerative changes are noted from L3-L4 through L5-S1, with disc bulge/osteophyte complexes. Additional degenerative changes are visualized involving the lower thoracic spine. T11-T12: At T11-12, disc bulging is visualized without significant spinal canal stenosis or neural foraminal narrowing. This level is out of the field of view of axial images, limiting the evaluation. L1-L2: There is no significant spinal canal stenosis or neural foraminal narrowing. L2-L3: There is no significant spinal canal stenosis or neural foraminal narrowing. L3-L4: Bilateral facet arthropathy is visualized. There is minimal disc bulging. There is no significant spinal canal stenosis or neural foraminal narrowing. There is a decrease in the height and T2 signal intensity of the disc. L4-L5: Bilateral facet arthropathy. A broad-based disc bulge is visualized, without significant spinal canal stenosis. There is narrowing of both lateral recesses. There is slight narrowing of the left neural foramen. No significant narrowing the right neural foramen is identified. There is a decrease in the height and T2 signal intensity of the disc. L5-S1: There is a decrease in the height and T2 signal intensity of the disc. The disc is heterogeneous signal intensity on STIR. Modic endplate changes are visualized. Bilateral facet arthropathy is visualized. Unroofing of the disc is seen posteriorly. At L5-S1, there is minimal narrowing of the thecal sac, contributed by subluxation of L5 on S1. Narrowing of both lateral recesses is identified. Severe right neural foraminal narrowing is identified with compression of the exiting right L5 nerve root. Severe left neural foraminal narrowing is also seen with encroachment on the exiting left L5 nerve root. Soft tissues: No significant paraspinal swelling. Kidneys and ureters: Right renal pelviectasis is identified with fullness of the proximal right ureter. IMPRESSION: 1. Grade 2/3 anterolisthesis of L5 on S1. There is abnormal morphology of the bilateral L5 pars interarticularis, and spondylolysis cannot be excluded. 2. Degenerative changes are visualized involving the lumbar and lower thoracic spine, as described above. 3. At L5-S1, there is minimal narrowing of the thecal sac, contributed by subluxation of L5 on S1. Narrowing of both lateral recesses is identified. 4. Neural foraminal narrowing at L4-L5 and L5-S1. Severe bilateral neural foraminal narrowing is identified at L5-S1, with compression of the exiting right L5 nerve root. There is encroachment on the exiting left L5 nerve root. 5. Right renal pelviectasis is identified with fullness of the proximal right ureter.
== END 2024-04-14 23:59 | disposition home or self-care (01) ==
PROVIDERS: PCP Nurse Practitioner Family; Visit Provider Nurse Practitioner Family
DX: H92.03 Otalgia, bilateral (principal); M54.50 Low back pain, unspecified
CPT/HCPCS: 70486; 72148

== ENCOUNTER 2024-05-06 14:11 | Outpatient (CLI) | payer BC, SELFPAY ==
--- NOTE | 2024-05-06 14:18 | XR_ITS ---
FINAL REPORT CLINICAL HISTORY: Neck pain COMPARISON: None FINDINGS: 7 views of the cervical spine, including flexion and extension views, were obtained. There is no acute fracture. There is reversal of the cervical lordosis. There is minimal spondylolisthesis of C3 on C4, which is probably degenerative. There is advanced disc space narrowing at C5-6 and C6-7. No instability is noted with flexion and extension. IMPRESSION: Degenerative changes without acute process. Reviewed, Interpreted and Dictated by Bruce Bishop MD Transcribed by Kaya De Luna Authenticated and [facility]
== END 2024-05-06 23:59 | disposition home or self-care (01) ==
LOC: RAD 14:13
PROVIDERS: PCP Nurse Practitioner Family; Visit Provider Specialist
DX: M54.2 Cervicalgia (principal)
CPT/HCPCS: 72052

== ENCOUNTER 2024-05-16 07:18 | Outpatient (CLI) | payer BC, SELFPAY ==
--- NOTE | 2024-05-16 07:23 | MR_ITS ---
FINAL REPORT CLINICAL HISTORY: Severe neck pain right arm pain , headaches FINDINGS: Multiplanar MR imaging of the cervical spine was performed without contrast. On the sagittal T2-weighted images, disc degeneration is seen throughout. There is no evidence of fracture. There is mild retrolisthesis of C5 on C6. Endplate changes are seen at several levels. The cervical spinal cord has an unremarkable appearance without evidence of mass, edema or syrinx. No significant canal stenosis is identified. The cervicomedullary junction is normal. C2-3: There is an annular disc bulge without significant canal stenosis or neural foraminal narrowing. C3-4: There is an annular disc bulge without significant canal stenosis or neural foraminal narrowing. C4-5: There is an annular disc bulge without significant canal stenosis or neural foraminal narrowing. C5-6: There is disc osteophyte complex with mild right and moderate left neuroforaminal narrowing. C6-7: Disc osteophyte complex with moderate right neuroforaminal narrowing. C7-T1: There is an annular disc bulge without significant canal stenosis or neural foraminal narrowing. IMPRESSION: Disc osteophyte complexes at C5-6 and C6-7 with mild to moderate neuroforaminal narrowing as above. Reviewed, Interpreted and Dictated by Lior Finn III, MD Transcribed by Yadi Fontana Authenticated and . [facility]
== END 2024-05-16 23:59 | disposition home or self-care (01) ==
LOC: RAD 07:19
PROVIDERS: PCP Nurse Practitioner Family; Visit Provider Specialist
DX: M54.2 Cervicalgia (principal)
CPT/HCPCS: 72141

== ENCOUNTER 2024-06-23 07:22 | Outpatient (CLI) | payer BC, SELFPAY ==
--- NOTE | 2024-06-23 | CA_ITS ---
APPROVED REPORT Exam: Pharmacologic Technologist: Naty Rivera Ht: 5 ft 4 in Wt: 191 lbs BSA: 1.92 m2 Stress Test Details Test: Lexiscan Reason for pharmacologic stress test: physical limitation. HR Resting HR: 73 bpm Max Heart Rate (APMHR): 164.895898 bpm Max HR Achieved: 115 bpm Target HR (85% APMHR): 139.458615 bpm % of APMHR: 70.12 Recovery HR: 74 bpm BP Resting BP: 140.0/88.0 mmHg Max BP: 140.0/87.0 mmHg Recovery BP: 121.0/84.0 mmHg ECG Resting ECG: SR Stress ECG Conclusion Symptoms: SOB, with Lexiscan infusion. Arrhythmias/Ectopy: none ST-T Changes: less than 1.5mm ST depression. Electronically signed by : Елена Andersen MD 06/23/2024 12:34:21
--- NOTE | 2024-06-23 07:34 | NM_ITS ---
APPROVED REPORT Exam: Nuclear Stress Test Indication: cad, 3 stents, htn, fm hx, c.p., sob Patient Location: Outpatient Stress Tech: Gayle Barber [place] Tech:Valencia CaponeMELLISA RT(R)(N) Ht: 5 ft 4 in Wt: 193 lbs Bra Size: 38c HR: 75 bpm BP: 140/88 mmHg BSA: 1.93 m2 TID: 1.12 BMI: 33.1 History: cad, 3 stents, htn, fm hx, c.p., sob Procedure: Patient received 0.4 mg of intravenous Lexiscan, resting heart rate 75 bpm, resting blood pressure 140/88 mmHg, with Lexiscan maximum heart rate achieved was 115 bpm which is % of the maximum predicted heart rate and blood pressure was 140/87 mmHg. With Lexiscan, patient denied any complaint of chest pain. Cardiac Stress and Resting SPECT Images: Cardiac Stress and Resting SPECT images were obtained using technetium 99m Myoview 30.9 mCi stress and 10.98 mCi at rest. Resting and stress management) position demonstrate no evidence of fixed or reversible perfusion defects. Gated imaging demonstrates normal global and regional LV systolic function. LVEF is calculated at 65%. Conclusion: No evidence of fixed or reversible perfusion defects. Gated imaging demonstrates normal global and regional LV systolic function. LVEF is calculated at 65%. Electronically signed by : Елена Andersen MD 06/23/2024 12:33:56
[2024-06-23] MEDS: REGADENOSON 0.4MG/5ML SYRINGE 0.4 MG IV (10:39)
[2024-06-23] MEDS: SODIUM CHLORIDE 0.9% 10ML SYR (RAD ONLY) 10 ML IV ×2 (10:39)
[2024-06-23] MEDS: ISOTOPE MYOVIEW (PER STUDY) 1 DOSE IV (10:39)
== END 2024-06-23 23:59 | disposition home or self-care (01) ==
LOC: RAD 07:24
PROVIDERS: PCP Nurse Practitioner Family; Visit Provider Internal Medicine
DX: R00.2 Palpitations (principal); I20.9 Angina pectoris, unspecified
CPT/HCPCS: 78452; 93017; 93018; 93306; A9502; J2785

== ENCOUNTER 2024-06-27 13:24 | Outpatient (CLI) | payer BC, SELFPAY ==
[2024-06-27 13:41] LABS: Basophils % 0.7 % (0.1-2.0); Eosinophils # 0.2 K/mm3 (0.0-0.4); Eosinophils % 2.6 % (0.1-12.0); Hematocrit 41.8 % (37.0-47.0); Hemoglobin 14.3 g/dL (12.2-16.2); Lymphocytes # 1.7 K/mm3 (0.7-4.5); Lymphocytes % 30.2 % (10-50); Mean Corpuscular HGB Conc 34.2 g/dL (31.8-35.4); Mean Corpuscular Hemoglobin 30.1 pg (27.0-31.2); Mean Platelet Volume 9.4 fl (7.4-10.4); Monocytes # 0.5 K/mm3 (0.1-1.0); Neutrophils # 3.3 K/mm3 (1.8-7.8); Neutrophils % 57.3 % (37.0-80.0); Platelet Count 267 K/mm3 (142-424); Red Blood Count 4.75 M/mm3 (4.20-5.40); Red Cell Distribution Width 11.8 % (11.5-17.5); White Blood Count 5.8 K/mm3 (4.8-10.8)
[2024-06-27 13:49] LABS: Alanine Aminotransferase 21 U/L (12-78); Albumin Level 4.5 g/dl (3.5-5.0); Alkaline Phosphatase 97 U/L (38-126); Aspartate Amino Transferase 30 U/L (14-36); Bilirubin,Direct 0.2 mg/dl (0.0-0.4); Bilirubin,Indirect 0.2 mg/dL (0.0-0.9); Bilirubin,Total 0.4 mg/dl (0.2-1.3); Bilirubin,Unconjugated 0.3 mg/dL (0.0-1.1); Blood Urea Nitrogen 15 mg/dl (7-17); Calcium 9.6 mg/dl (8.4-10.2); Carbon Dioxide 27 mmol/L (22.0-30.0); Chloride 103 mmol/L (98-107); Chol/HDL Ratio 4.6 (1-3.5); Cholesterol 209 mg/dl (140-200); Estimated Glomerular Filt Rate 65 ml/min (>60); GFR (African American) 78 ML/MIN (>60); Glucose 95 mg/dl (74-100); HDL Cholesterol 45 mg/dl (40-60); Magnesium 2.1 mg/dl (1.6-2.3); Sodium 138 mmol/L (136-145); Total Protein,Serum 6.9 g/dl (6.3-8.2); Triglycerides 127 mg/dl (30-150); VLDL Cholesterol 25 mg/dL (0-40)
[2024-06-27 13:53] LABS: D-Dimer < 0.25 ug/mL (0.0-0.5)
[2024-06-27 14:01] LABS: Direct LDL Cholesterol 134.39 mg/dL (100-129)
[2024-06-27 14:10] LABS: Troponin I < 0.01 ng/ml (0.00-0.034)
[2024-06-27 14:23] LABS: Thyroid Stimulating Hormone 1.42 uIU/mL (0.465-4.68)
[2024-06-27 14:24] LABS: Free T4 (Free Thyroxine) 1.22 ng/dl (0.78-2.19)
== END 2024-06-27 23:59 | disposition home or self-care (01) ==
LOC: LAB 13:25
PROVIDERS: PCP Nurse Practitioner Family; Visit Provider Internal Medicine
DX: I25.118 Atherosclerotic heart disease of native coronary artery with other forms of angina pectoris (principal); I47.10 Supraventricular tachycardia, unspecified; R94.30 Abnormal result of cardiovascular function study, unspecified; I10 Essential (primary) hypertension; I21.4 Non-ST elevation (NSTEMI) myocardial infarction; E78.5 Hyperlipidemia, unspecified; R94.31 Abnormal electrocardiogram [ECG] [EKG]
CPT/HCPCS: 36415; 80048; 80061; 80076; 83735; 84439; 84443; 84484; 85025; 85378

== ENCOUNTER 2024-06-30 07:39 | Day surgery (SDC) | payer BC, SELFPAY ==
[2024-06-30] VITALS (12 sets, daily range): BP systolic 95–128; BP diastolic 54–85; PULSE 42–78; RESP 16–20; TEMP 36.9; O2SAT 95–100; BMI 32.8
--- NOTE | 2024-06-30 07:24 | IR_ITS ---
APPROVED REPORT Patient Location: Outpatient Helminthologist: MELLISA Ritter RT (R) PROCEDURES Left heart catheterization Left ventriculogram Selective coronary angiogram INDICATION Known coronary artery disease, Accelerated angina pectoris, Informed consent was obtained prior to the procedure. COMPLICATIONS None Estimated Blood Loss: Less than 10 mls TECHNIQUE One percent lidocaine used to anesthetize the right anterior aspect of the wrist. The right radial artery was accessed via the Seldinger technique. A 6 Afghan sheath was placed in the right radial artery. 2.5 mg of Verapamil, 800 mcg of nitroglycerin, 1mg Lidocaine and 5000 U Heparin were given through the arterial sheath. The 6 Afghan JL 3 guide catheter r was also used to perform left heart catheterization, left ventriculogram and selective coronary angiogram. At the end of the procedure the sheath was removed good hemostasis was achieved using Traclet band, patient was transferred to the postop holding area in stable condition. ANGIOGRAPHIC RESULTS The left main artery Normal The left anterior descending artery Has a stent in the proximal through mid segment which is widely patent. Proximally there is 30% concentric in-stent restenosis. Distally there is excellent transitioning into the widely patent mid and distal LAD. The first diagonal artery is a medium sized branch and has an ostial 30 to 40% concentric stenosis The circumflex artery Large nondominant normal The right coronary artery Dominant with stents in the proximal through mid segment which are widely patent with minimal distal 30% in-stent restenosis with excellent distal transitioning The DYE ventriculogram reveals Normal 65% The left ventricular end-diastolic pressure Elevated at 20 to 25 mmHg IMPRESSION Patent coronary arteries and stents as described above Normal ejection fraction Evaded LVEDP which is likely contributing to patient's angina pectoris PLAN 1. Continue medical management Electronically signed by : Matt Thomas MD 06/30/2024 10:26:40
[2024-06-30 08:20] LABS: Basophils # 0.1 K/mm3 (0-0.2); Eosinophils # 0.2 K/mm3 (0.0-0.4); Eosinophils % 4.2 % (0.1-12.0); Hematocrit 43.4 % (37.0-47.0); Hemoglobin 14.5 g/dL (12.2-16.2); Lymphocytes # 1.6 K/mm3 (0.7-4.5); Lymphocytes % 32.3 % (10-50); Mean Corpuscular HGB Conc 33.4 g/dL (31.8-35.4); Mean Corpuscular Hemoglobin 30.3 pg (27.0-31.2); Mean Corpuscular Volume 90.8 fl (81-99); Mean Platelet Volume 9.7 fl (7.4-10.4); Monocytes # 0.6 K/mm3 (0.1-1.0); Neutrophils # 2.5 K/mm3 (1.8-7.8); Neutrophils % 50.3 % (37.0-80.0); Platelet Count 267 K/mm3 (142-424); Red Blood Count 4.78 M/mm3 (4.20-5.40); Red Cell Distribution Width 11.9 % (11.5-17.5)
[2024-06-30 08:27] LABS: Chloride 106 mmol/L (98-107); Sodium 137 mmol/L (136-145)
[2024-06-30 08:28] LABS: Potassium 4.2 mmoL/L (3.5-5.1)
[2024-06-30 08:30] LABS: Blood Urea Nitrogen 17 mg/dl (7-17); Creatinine Clearance Estimated 95 mL/min (50-200); Estimated Glomerular Filt Rate 65 ml/min (>60); GFR (African American) 78 ML/MIN (>60)
[2024-06-30 08:31] LABS: Anion Gap 8.2 mEq/L (5-15); Calcium 9.5 mg/dl (8.4-10.2); Carbon Dioxide 27 mmol/L (22.0-30.0); Glucose 98 mg/dl (74-100)
[2024-06-30] MEDS: HEPARIN 1,000 UNITS/500ML NS (CATH LAB) 3000 UNIT IV (09:59)
[2024-06-30] MEDS: VERAPAMIL 2.5MG/ML 2ML VIAL 2.5 MG IV (09:59)
[2024-06-30] MEDS: LIDOCAINE 1% 10ML MDV 20 ML IJ (09:59)
[2024-06-30] MEDS: 0.9 % SODIUM CHLORIDE 500 ML 25 ML IV (10:00)
[2024-06-30] MEDS: NITROGLYCERIN 800MCG/8ML SYR (CATH LAB) 800 MCG IA (10:00)
[2024-06-30] MEDS: HEPARIN 1,000 UNITS/ML 10ML VIAL (CATH LAB) 10000 UNIT IV (10:00)
[2024-06-30] MEDS: diphenhydrAMINE 50MG/ML VIAL 50 MG IV (10:00)
[2024-06-30] MEDS: PROPOFOL 10MG/ML 20ML VIAL 20 MG IV (10:26)
[2024-06-30] MEDS: IOPAMIDOL-370 (76%);100ML BOTTLE 50 ML IV (13:18)
== END 2024-06-30 13:22 | disposition home or self-care (01) ==
PROVIDERS: PCP Nurse Practitioner Family; Visit Provider Internal Medicine
DX: I25.118 Atherosclerotic heart disease of native coronary artery with other forms of angina pectoris (principal); I10 Essential (primary) hypertension; R94.31 Abnormal electrocardiogram [ECG] [EKG]; E78.5 Hyperlipidemia, unspecified; Z79.899 Other long term (current) drug therapy; I25.2 Old myocardial infarction
CPT/HCPCS: 80048; 85025; 93458; 99152; C1725; C1769; J1200; J1644; Q9967